=== PATIENT | female | born 1960 ===

== ENCOUNTER 2025-02-17 12:54 | Inpatient (IN) | payer MEDICARE, OTHER ==
[~2025-02-17] VITALS: Ht 167.6 cm; Wt 55.5 kg
[2025-02-17] MEDS ORDERED: FLU VACC TS2025-26(6MOS UP)/PF 45 MCG/0.5 ML SYRINGE IM SCH (13:50)
[2025-02-17] MEDS ORDERED: DiphenhydrAMINE HCl 50 MG/ML 1ML Vial IM PRN (13:50)
[2025-02-17] MEDS ORDERED: Aluminum Hydroxide 320MG/5ML 473 ML PO PRN (13:55)
[2025-02-17] MEDS ORDERED: Haloperidol Lactate Inj. 5 MG/ML Injection IM PRN (13:55)
[2025-02-17] MEDS ORDERED: Polyethylene Glycol 3350 17 gm PO PRN (14:00)
[2025-02-17] MEDS ORDERED: Ondansetron 4 MG SoluTab MM PRN (14:00)
[2025-02-17] MEDS ORDERED: LORazepam 2 MG/ML 1ML Injection IM PRN (14:00)
[2025-02-17 16:21] VITALS: BP 92/62
[2025-02-17 16:44] VITALS: BP 92/62
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
--- NOTE | 2025-02-17 18:18 | NUR ---
PT REPORTED A HOSPITALIZATION IN APRIL 2024 DUE TO A SA AND TO WHICH SHE LEFT "AMA." SHE REPORTED "10 SUICIDE ATTEMPTS IN THE PAST. PT REPORTS SIGNIFICANT SUBSTANCE USE OVER THE COURSE OF HER LIFETIME FROM AGE [age], SHE STATED THAT SHE HAS NOT USED FOR THE LAST 3 MONTHS. ALCOHOL, METH, COCAINE.
[2025-02-17] MEDS ORDERED: ACET500 PO (18:32)
[2025-02-18] MEDS ORDERED: ALBU90OI (02:02)
[2025-02-18] MEDS ORDERED: ABILIFY MYCITE5 M2 PO (02:05)
[2025-02-18] MEDS ORDERED: DOCU100 PO ×2 (02:07→17:36)
[2025-02-18] MEDS ORDERED: ESCI10 PO (02:08)
[2025-02-18] MEDS ORDERED: FLUT1DIS8 INH ×2 (02:12→17:37)
[2025-02-18] MEDS ORDERED: AIRDUO DIGIHAL1 EAC1 INH ×2 (02:14→17:37)
[2025-02-18] MEDS ORDERED: BREO ELLIPTA 21 EAC1 INH ×2 (02:15→17:38)
[2025-02-18] MEDS ORDERED: FURO20 PO ×2 (02:16→17:42)
[2025-02-18] MEDS ORDERED: HYDROCORTISON28.4 G4 TOP (02:18)
[2025-02-18] MEDS ORDERED: HYDPAM25 PO (02:20)
[2025-02-18] MEDS ORDERED: LEVO-T50 MCG PO (02:22)
[2025-02-18] MEDS ORDERED: LOPE2C PO (02:23)
[2025-02-18] MEDS ORDERED: LATUDA80 M2 PO (02:24)
[2025-02-18] MEDS ORDERED: DULERA 100 MCG/13 GM INH ×2 (02:25→17:45)
[2025-02-18] MEDS ORDERED: NARCAN4 M1 INH (02:28)
[2025-02-18] MEDS ORDERED: NAPR500 PO ×2 (02:29→17:46)
[2025-02-18] MEDS ORDERED: OLAN10 PO ×2 (02:30→17:47)
[2025-02-18] MEDS ORDERED: OMEP20ER PO (02:34)
[2025-02-18] MEDS ORDERED: POTA10T PO ×2 (02:36→17:48)
[2025-02-18] MEDS ORDERED: Inderal 20 mg T20 MG PO (02:37)
[2025-02-18] MEDS ORDERED: BICARSIM FORTE125 MG XX (02:39)
[2025-02-18] MEDS ORDERED: SUMA25 PO (02:41)
[2025-02-18] MEDS ORDERED: TRAZ150T57 PO ×2 (02:42→17:51)
[2025-02-18] MEDS ORDERED: Verapamil ER100 MG PO ×2 (02:43→17:52)
--- NOTE | 2025-02-18 04:34 | NUR ---
SHIFT SUMMARY: PATIENT STARTED OUT THE SHIFT IN BED APPARENTLY ASLEEP, ALTHOUGH SHE AWOKE TO HER NAME SOFTLY SPOKEN. SHE STATED, "I FEEL SO MUCH BETTER NOW THAT I'M HERE". SHE WAS ABLE TO ANSWER DYE BOARDING MACHINE OPERATOR QUESTIONS IN A FAIRLY LOGICAL AND LINEAR MANNER. SHE DENIED SUICIDAL IDEATION "I FEEL MUCH SAFER HERE", THOUGHTS OF SELF HARMING AND A/V/T HALLUCINATIONS. SHE STATED THAT SHE IS "TIRED" AND DID NOT WANT TO GET UP OR PARTICIPATE IN ANYTHING TONIGHT. SHE ADMITTED TO HEADACHE, AND REQUESTED TYLENOL, AND ALSO REQUESTED TRAZODONE, ALTHOUGH "I'M USED TO TAKING A LOT MORE THAN THAT!" WHEN INFORMED IT WAS 50 MG. SHE REMAINED IN BED THROUGHOUT THE SHIFT. SHE WAS COMPLIANT WITH MEDICATION ADMINISTRATION, AND THE TRAZODONE WAS EFFECTIVE FOR INSOMNIA COMPLAINTS, AND THE TYLENOL EFFECTIVE FOR HEADACHE, SHE HAD NO MORE ISSUES. SHE RESTED QUIETLY WITH EYES CLOSED AND RESPIRATIONS CONFIRMED FOR THE REMAINDER OF THE SHIFT. CONTINUING TO MONITOR FOR SAFETY WITH Q15 MINUTE CHECKS.
[2025-02-18] MEDS ORDERED: Multivitamins 1 Tab PO SCH (09:00)
[2025-02-18 09:13] VITALS: BP 102/66
--- NOTE | 2025-02-18 10:12 | NUR ---
SHIFT ASSESSMENT: PT ENDORSED SUICIDAL THINKING WITH NO PLAN. PT REPORTS, "I DON'T WANT TO BE HERE, I'M OVERWHELMED WITH MY HEALTH PROBLEMS, CHRONIC PAIN AND MENTAL HEALTH ISSUES." SHE DENIED HI AND AVH. SHE RATED HER ANXIETY LEVEL AT 8/10w, MASS OF 4 AND WAS GIVEN VISTARIL 50MG. PT'S HAIR IS MATTED AND DIRTY, SHE WAS ENCOURAGED TO SHOWER AND WASH HER HAIR AND STAFF WILL ASSIST HER WITH COMBING IT. PT APEARS OLDER THAN STATED AGE. SHE DESCRIBED HER MOOD , "DEPRESSED." HER AFFECT WAS CONSTRICTED. HER GOALS FOR THE DAY ARE TO, TALK WITH STAFF AND DRINK WATER. PT IS CURRENTLY LAYING IN BED.
[2025-02-18 11:54] VITALS: BP 125/76
[2025-02-18] MEDS ORDERED: Formoterol/Mometasone MDI 5/200 mcg 13 GM INH SCH (12:45)
[2025-02-18] MEDS ORDERED: Albuterol HFA200 ACT/6.7 GM INH INH PRN (12:45)
[2025-02-18 13:33] LABS: BASOPHILS ABSOLUTE AUTO 0.06 K/mm3 (0.00-0.23); BASOPHILS PERCENT AUTO 1 % (0-2); EOSINOPHILS ABSOLUTE AUTO 0.20 K/mm3 (0.00-0.68); EOSINOPHILS PERCENT AUTO 2 % (0-6); Hematocrit 42.9 % (33.0-51.0); Hemoglobin 13.8 g/dL (11.5-16.0); IMMATURE GRAN ABSOLUTE AUTO 0.04 K/mm3 (0.00-0.10); IMMATURE GRAN PERCENT AUTO 0 % (0-1); LYMPHOCYTES ABSOLUTE AUTO 3.12 K/mm3 (0.84-5.20); LYMPHOCYTES PERCENT AUTO 24 % (21-46); MONOCYTES ABSOLUTE AUTO 0.78 K/mm3 (0.16-1.47); MONOCYTES PERCENT AUTO 6 % (4-13); Mean Corpuscular HGB Conc 32.2 g/dL (31.5-36.5); Mean Corpuscular Volume 87 fL (80-100); NEUTROPHILS ABSOLUTE AUTO 8.87 K/mm3 (1.96-9.15); NEUTROPHILS PERCENT AUTO 68 % (41-73); NRBC ABSOLUTE 0.00 K/mm3 (0.00-0.02); NRBC Auto 0.0 /100 WBC (0.0-0.2); Platelet Count 487 K/mm3 (150-400); RDW Coefficient Variation 15.1 % (11.7-14.2); RDW Standard Deviation 48.2 fL (35.1-46.3)
[2025-02-18 14:12] LABS: Alanine Aminotransfer (ALT/SGP 29.0 U/L (12-78); Albumin, Blood 4.0 g/dL (3.4-5.0); Albumin/Globulin Ratio 1.0 (0.8-1.8); Anion Gap 12.0 mmol/L (3-11); Aspartate Aminotrans (AST/SGOT 13.0 U/L (12-37); Bilirubin, Total 0.3 mg/dL (0.1-1.0); Blood Urea Nitrogen 54.0 mg/dL (8-24); CO2, Blood 18.0 mmol/L (21-32); Calcium, Blood 9.2 mg/dL (8.5-10.1); Chloride, Blood 105.0 mmol/L (98-108); Creatinine, Blood 1.42 mg/dL (0.40-1.00); Globulin, Blood 4.0 g/dL (2.2-4.0); Glucose, Blood 104.0 mg/dL (70-99); Potassium, Blood 4.5 mmol/L (3.5-5.5); Sodium, Blood 130.0 mmol/L (136-145); Thyroid Stimulating Hormone 5.42 uIU/mL (0.360-4.800); Total Protein, Blood 8.0 g/dL (6.4-8.2)
--- NOTE | 2025-02-18 15:00 | NUR ---
Dr. Mann was called in for medical consult. Labs were ordered and resulted abnormal. The provider was notiofied and after reviewing the labs, decided to admit the patient to medical floor. Nurse Virgilio Luciano was notified. They will need a bit of time to clean a room on SCU, before we can officially discharge the patient to medical. This is estimated to be about an hour. Patient will be assuming room 346 on the medical floor. This is in the SCU d/t the patients current SI.
--- NOTE | 2025-02-18 15:03 | NUR ---
PT REPORTED THAT SHE HAD A HEADACHE AND WAS GIVEN TYLENOL 650MG WHICH WAS MINIMALLY EFFECTIVE IN REDUCING HER PAIN LEVEL FROM 8/10w TO 6/10w. PT SAID SHE WAS FEELING A LITTLE NAUSEOUS AND WANTED TO SKIP LUNCH. PT WAS SEEN BY THE HOSPITALIST FOR MEDICATION MANAGEMENT. LABS WERE DRAWN. PT IS CURRENTLY RESTING IN BED. PT IS A BIT SHAKEY WHICH SHE REPORTED WAS NOT HER NORMAL AND THAT SHE DOESN'T FEEL GOOD. LABS CAME KENNY ABNORMAL, PROVIDERS NOTIFIED AND SHE WAS MADE AWARE OF HER TRANSFER TO MEDICAL FLOOR PER ABNORMAL LABS SOON A BED IS AVAILABLE.
--- NOTE | 2025-02-18 17:01 | NUR ---
1705 PT WAS TRANSFERED TO MEDICAL FLOOR VIA VAN AND STAFF MEMBERS FROM [facility] DUE TO ABNORMAL LABS. SHE LEFT WITH ALL OF HER BELONGINGS AND DISCHARGE PAPERWORK. [facility] DIRECTOR WAS NOTIFIED OF THE TRANSFER. PT EXPRESSED GRATITUDE TO GO TO MEDICAL FLOOR FOR A HIGHER LEVEL OF CARE.
[2025-02-18] MEDS ORDERED: ACET500 PO (17:35)
[2025-02-18] MEDS ORDERED: ALBU90OI INH (17:36)
[2025-02-18] MEDS ORDERED: Hydroxyzine HCl25 MG PO (17:43)
[2025-02-18] MEDS ORDERED: EUTHYROX50 MCG PO (17:43)
[2025-02-18] MEDS ORDERED: IMODIUM A-D2 M1 PO (17:44)
[2025-02-18] MEDS ORDERED: LATUDA80 M1 PO (17:45)
[2025-02-18] MEDS ORDERED: NARCAN4 M1 (17:46)
[2025-02-18] MEDS ORDERED: ONDA4ODT MM (17:48)
[2025-02-18] MEDS ORDERED: OMEPRAZOLE MAGN20 MG PO (17:48)
[2025-02-18] MEDS ORDERED: Inderal40 MG PO (17:49)
[2025-02-18] MEDS ORDERED: SIME80CH PO (17:49)
[2025-02-18] MEDS ORDERED: Imitrex100 MG PO (17:50)
[2025-02-18] MEDS ORDERED: Banana Flakes/Tos 1 EA Powder Pack PO SCH (21:00)
== END 2025-02-18 17:05 | disposition short-term general hospital (02) | DRG 885 ==
LOC: BHU 12:54
PROVIDERS: Student in an Organized Health Care Education/Training Program; ADMIT Psychiatry & Neurology Psychiatry
DX: F33.2 Major depressive disorder, recurrent severe without psychotic features (principal); N17.9 Acute kidney failure, unspecified; R45.851 Suicidal ideations; I10 Essential (primary) hypertension; E03.9 Hypothyroidism, unspecified; J44.9 Chronic obstructive pulmonary disease, unspecified; F17.210 Nicotine dependence, cigarettes, uncomplicated; K21.9 Gastro-esophageal reflux disease without esophagitis; R73.9 Hyperglycemia, unspecified; A60.04 Herpesviral vulvovaginitis; R19.7 Diarrhea, unspecified; G43.909 Migraine, unspecified, not intractable, without status migrainosus; F15.10 Other stimulant abuse, uncomplicated; Z91.51 Personal history of suicidal behavior; Z60.2 Problems related to living alone; Z98.890 Other specified postprocedural states; Z79.51 Long term (current) use of inhaled steroids; Z79.890 Hormone replacement therapy; Z79.899 Other long term (current) drug therapy; Z88.5 Allergy status to narcotic agent; Z93.3 Colostomy status
CPT/HCPCS: 36415; 80053; 84443; 85025; A9270

== ENCOUNTER 2025-02-18 16:08 | Inpatient (IN) | payer MEDICARE, OTHER ==
[~2025-02-18] VITALS: Ht 167.6 cm; Wt 55.1 kg
[~2025-02-18 16:08] MED LIST: ABILIFY MYCITE5 M2 PO; ACET500 PO; AIRDUO DIGIHAL1 EAC1 INH; ALBU90OI; BICARSIM FORTE125 MG XX; BREO ELLIPTA 21 EAC1 INH; DOCU100 PO; DULERA 100 MCG/13 GM INH; ESCI10 PO; FLUT1DIS8 INH; FURO20 PO; HYDPAM25 PO; HYDROCORTISON28.4 G4 TOP; Inderal 20 mg T20 MG PO; LATUDA80 M2 PO; LEVO-T50 MCG PO; LOPE2C PO; NAPR500 PO; NARCAN4 M1 INH; OLAN10 PO; OMEP20ER PO; POTA10T PO; SUMA25 PO; TRAZ150T57 PO; Verapamil ER100 MG PO
[2025-02-18] MEDS ORDERED: ACET500 PO (17:35)
[2025-02-18] MEDS ORDERED: ALBU90OI INH (17:36)
[2025-02-18] MEDS ORDERED: DOCU100 PO (17:36)
[2025-02-18] MEDS ORDERED: AIRDUO DIGIHAL1 EAC1 INH (17:37)
[2025-02-18] MEDS ORDERED: BREO ELLIPTA 21 EAC1 INH (17:38)
[2025-02-18] MEDS ORDERED: FURO20 PO (17:42)
[2025-02-18] MEDS ORDERED: EUTHYROX50 MCG PO (17:43)
[2025-02-18] MEDS ORDERED: Hydroxyzine HCl25 MG PO (17:43)
[2025-02-18] MEDS ORDERED: IMODIUM A-D2 M1 PO (17:44)
[2025-02-18] MEDS ORDERED: LATUDA80 M1 PO (17:45)
[2025-02-18] MEDS ORDERED: DULERA 100 MCG/13 GM INH (17:45)
[2025-02-18] MEDS ORDERED: NARCAN4 M1 (17:46)
[2025-02-18] MEDS ORDERED: ONDA4ODT MM (17:48)
[2025-02-18] MEDS ORDERED: OMEPRAZOLE MAGN20 MG PO (17:48)
[2025-02-18] MEDS ORDERED: Inderal40 MG PO (17:49)
[2025-02-18] MEDS ORDERED: SIME80CH PO (17:49)
[2025-02-18] MEDS ORDERED: Imitrex100 MG PO (17:50)
[2025-02-18] MEDS ORDERED: FLU VACC TS2025-26(6MOS UP)/PF 45 MCG/0.5 ML SYRINGE IM SCH (18:15)
[2025-02-18] MEDS ORDERED: Albuterol HFA200 ACT/6.7 GM INH INH PRN (19:00)
[2025-02-18] MEDS ORDERED: Formoterol/Mometasone MDI 5/200 mcg 13 GM INH SCH (19:00)
[2025-02-18] MEDS ORDERED: NS 1,000 ML IV SCH (19:00)
--- NOTE | 2025-02-18 19:05 | NUR ---
ADMISSION NOTE/SHIFT SUMMARY PATIENT ADMITTED TO 346 FROM [facility] THIS EVENING AROUND 1730. PATIENT A/OX4, ABLE TO MAKE NEEDS KNOWN, COMPLAINING OF GENERAL MALAISE, NAUSEA, AND MIGRAINE. PATIENT WITH ILEOSTOMY SINCE AUGUST 2024 AND RECNT HOSPITILIZATION WITH COLITIS. PATIENT HAS 1:1 SITTER D/T SI. STOOL SAMPLE OBTAINED FROM ILEOSTOMY. PATIENT ADMINISTERED MEDICATIONS PER EMAR FOR MIGRAINE. IV ATTEMPTED TO BE PLACE X2 USUCCSESFUL. CHARGE NURSE INFORMED. BEDSIDE SHIFT REPORT COMPLETED WITH WOOL SORTER NURSES. NO OTHER CONCERNS AT THIS TIME.
[2025-02-18 20:20] VITALS: BP 108/83
[2025-02-18] MEDS ORDERED: Banana Flakes/Tos 1 EA Powder Pack PO SCH (21:00)
[2025-02-19 00:22] LABS: Campylobacter Sp Not Detected (NOT DETECT); E. Coli O157 Not Detected (NOT DETECT); Enteroaggregative E. coli-EAEC Not Detected (NOT DETECT); Enteropathogenic E. coli-EPEC Not Detected (NOT DETECT); Enterotoxigenic E. coli-ETEC Not Detected (NOT DETECT); Salmonella Sp Not Detected (NOT DETECT); Shiga Toxin-prod E. coli-STEC Not Detected (NOT DETECT); Shigella/Enteroin E. coli-EIEC Not Detected (NOT DETECT); Vibrio Sp Not Detected (NOT DETECT)
--- NOTE | 2025-02-19 01:27 | NUR ---
Girish, patient had an incident with her ileostomy where it had leaked while she was sleeping. She woke up frantic, hyperventilating and appeared to be in a panick attack with her anxiety katie high to the point she couldn't think straight. She screamed out "I need help! I need help in here." This RN was already sitting across the hallway with patient in view. Entered room and patient close to being tearful and clearly in distress stating her ileostomy had leaked again. This was the first time it leaked girish. Patient could not gather her thoughts but was able to answer questions with one to two word answers, still very panicky. Able to get patient onto the toilet and then the shower. While in the shower, she was tearful and hyperventilating again. Claimed she felt like she was going to pass out, then said she felt like she couldn't breathe, and then stated she felt like she is having a herpes flare up. It was one problem after the next. SAEID Max and myself were both working with patient girish and was able to prevent patient from spiraling further by using therapeutic communication, exhibiting calm demeanor, providing reassurance, and giving a helping hand. From here, patient got back into bed and replaced own ileostomy bag. Patient was at [facility] prior to this admission. This RN concern for safety as 1:1 sitter was just discontinued. Reassessed suicide risk and patient reports plan to kill herself when she gets home. Patient states "There's nothing I can do here but when I get home, I plan to stab myself over and over again. And that's after taking all of my psyche meds." When inquired about what's changed, patient reports that she is tired of her ileostomy bag leaking and that every time it leaks, it takes her to this state of mind. Claimed she is intending on carrying out this plan. These comments and her history of SI attempts puts patient at a High Risk. Relayed this new finding to Charge Atif Pierce RN. Per SAEID Srivastava... reassess risk the next time it's due and, if risk level unchanged, notify provider then. Patient currently being observed w/ 1:1 between SAEID Max and myself. Room mitigation conducted. Patient resting quietly in bed.
--- NOTE | 2025-02-19 01:46 | NUR ---
PT BEGAN SPIRALLING AFTER HER OSTOMY BAG BEGAN TO LEAK. SHE BEGAN TO CRY AND HYPERVENTILATE. THIS NURSE AND TH-RN GAVE REASSURANCE AND USED SYMPATHETIC LANGUAGE TO CALM AND RELAX THE PT. PT TOOK A SUPERVISED SHOWER AND APPLIED A NEW OSTOMY BAG. AFTER THIS EVENT PT TOLD TH-RN THAT WHEN SHE GOT HOME SHE WOULD TAKE STEPS TO END HER LIFE, CHARGE NURSE WAS NOTIFIED. PT IS CURRENTLY RESTING COMFORTABLY AND THIS RN REMAINS IN THE ROOM TO CONTINUE TO MONITOR.
[2025-02-19 04:03] VITALS: BP 94/60
--- NOTE | 2025-02-19 04:34 | NUR ---
PT HAS POOR IV ACCESS, 22G PLACED IN RAC BECAME UNUSABLE SHORTLY AFTER PLACEMENT, PT RECEIVED 1/3RD OF ORDERED IV FLUIDS. SPOKE WITH HOSPITALIST AND WAS TOLD THATIT WAS OKAY TO NOT HAVE A PIV AND TO D/C FLUID PENDING MORNING LABS.
[2025-02-19 05:41] LABS: BASOPHILS ABSOLUTE AUTO 0.06 K/mm3 (0.00-0.23); BASOPHILS PERCENT AUTO 1 % (0-2); EOSINOPHILS ABSOLUTE AUTO 0.23 K/mm3 (0.00-0.68); EOSINOPHILS PERCENT AUTO 2 % (0-6); Hematocrit 40.0 % (33.0-51.0); Hemoglobin 13.1 g/dL (11.5-16.0); IMMATURE GRAN ABSOLUTE AUTO 0.04 K/mm3 (0.00-0.10); IMMATURE GRAN PERCENT AUTO 0 % (0-1); LYMPHOCYTES ABSOLUTE AUTO 2.66 K/mm3 (0.84-5.20); LYMPHOCYTES PERCENT AUTO 26 % (21-46); MONOCYTES ABSOLUTE AUTO 0.60 K/mm3 (0.16-1.47); MONOCYTES PERCENT AUTO 6 % (4-13); Mean Corpuscular HGB Conc 32.8 g/dL (31.5-36.5); Mean Corpuscular Volume 87 fL (80-100); NEUTROPHILS ABSOLUTE AUTO 6.62 K/mm3 (1.96-9.15); NEUTROPHILS PERCENT AUTO 65 % (41-73); NRBC ABSOLUTE 0.00 K/mm3 (0.00-0.02); NRBC Auto 0.0 /100 WBC (0.0-0.2); Platelet Count 401 K/mm3 (150-400); RDW Coefficient Variation 15.2 % (11.7-14.2); RDW Standard Deviation 48.3 fL (35.1-46.3)
[2025-02-19 05:54] VITALS: BP 91/77
[2025-02-19 06:14] LABS: Anion Gap 12.0 mmol/L (3-11); Blood Urea Nitrogen 47.0 mg/dL (8-24); CO2, Blood 16.0 mmol/L (21-32); Calcium, Blood 9.4 mg/dL (8.5-10.1); Chloride, Blood 107.0 mmol/L (98-108); Creatinine, Blood 1.27 mg/dL (0.40-1.00); Glucose, Blood 114.0 mg/dL (70-99); Potassium, Blood 4.9 mmol/L (3.5-5.5); Sodium, Blood 130.0 mmol/L (136-145)
--- NOTE | 2025-02-19 07:26 | NUR ---
Shift Summary AOx3. Patient able to carry on a meaningful conversation with this RN, is aware of what's going on. Patient has been quite demanding and impatient. Despite having agreed to wait 5 minutes for me to pull her meds in order to bundle care, as soon as I step outside of her room, pt will yell out again that she is thirsty and needs water. If the staff takes a little longer to address patient's demand, she will make other false statements such as "Help me poo. I can't poo" (+ cdiff and pooping q shift) AND "I need to pee. I need to pee. Please help me pee" when she had already wet her brief and bladder scan showed < 25cc with no signs of acute retention. Drinking well w/ assist using spoon and HOB 90 degrees. Medicated for pain per EMAR with good effect. Though patient did initially request oxy to "help me sleep," educated on indication for pain, not sleep. Gave trazodone for sleep instead. Had a discussion with patient RE goals of care and what patient expectations are moving forward. Patient still stated, as she did initially, that her goal is to return home. Did convey realistic care expectations of home vs facility and concern that family/ may not be able to provide the care that patient now needs; however, pt appeared to be in denail about the extent of her recent health decline as evidence by showing no interest in answering further and changing the subject entirely. Slept well throughout the night.
[2025-02-19 07:41] VITALS: BP 103/80
[2025-02-19] MEDS ORDERED: Enoxaparin 40 MG/0.4 ML SYR SC SCH (09:00)
[2025-02-19 11:07] LABS: Alanine Aminotransfer (ALT/SGP 23.0 U/L (12-78); Albumin, Blood 3.7 g/dL (3.4-5.0); Albumin/Globulin Ratio 1.1 (0.8-1.8); Anion Gap 12.0 mmol/L (3-11); Aspartate Aminotrans (AST/SGOT 13.0 U/L (12-37); Bilirubin, Total 0.4 mg/dL (0.1-1.0); Blood Urea Nitrogen 43.0 mg/dL (8-24); CO2, Blood 16.0 mmol/L (21-32); Calcium, Blood 9.3 mg/dL (8.5-10.1); Chloride, Blood 109.0 mmol/L (98-108); Creatinine, Blood 1.12 mg/dL (0.40-1.00); Globulin, Blood 3.5 g/dL (2.2-4.0); Glucose, Blood 125.0 mg/dL (70-99); Magnesium, Blood 2.3 mg/dL (1.6-2.4); Phosphorus, Blood 3.4 mg/dL (2.5-4.9); Potassium, Blood 4.3 mmol/L (3.5-5.5); Sodium, Blood 133.0 mmol/L (136-145); Total Protein, Blood 7.2 g/dL (6.4-8.2)
--- NOTE | 2025-02-19 12:48 | NUR ---
PROVIDER CONTACT: SPOKE WITH DR FELICIANO REGARDING PT HIGH SI RISK AND THE POTENTIAL FOR A PSYCH CONSULT TO BE PLACED. PLAN OF CARE IS TO NOT PLACE ONE AT THIS TIME AND TO TREAT THE PTs OTHER ILLNESSES UNTIL THE PT IS STABLE TO RETURN TO THE U. CARE CONTINUES.
[2025-02-19 16:29] VITALS: BP 98/79
--- NOTE | 2025-02-19 16:30 | NUR ---
SHIFT SUMMARY: A&OX4 THROUGHOUT SHIFT. PLEASANT AND COOPERATIVE WITH CARE. NO ACUTE EVENTS. 1:1 SITTER REMAINS AT BEDSIDE FOR HIGH SI RISK. LYING IN BED AT THIS TIME. BREATHING EQUAL AND NONLABORED. MEDICATED FOR PAIN X1. CALL LT NEAR.
[2025-02-19 19:45] VITALS: BP 102/86
[2025-02-20 05:02] VITALS: BP 97/78
--- NOTE | 2025-02-20 06:02 | NUR ---
PT HAD A RESTFUL NIGHT. IN CONTRAST TO THE ILLEOSTOMY LEAK FROM THE NIGHT PRIOR, PT MAINTAINED A GOOD ATTITUDE AND DID NOT SPIRAL INTO PANIC. REASSURANCE GOES A LONG WAY WHEN HELPING HER NOT TO BECOME HYSTERICAL. NO SUICIDAL IDEATION HOWEVER DOES REPORT SUICIDAL THOUGHTS WITH NO PLAN OR INTENT. NO APPARENT DISTRESS STILL 1:1 SITTER.
[2025-02-20 06:04] LABS: BASOPHILS ABSOLUTE AUTO 0.04 K/mm3 (0.00-0.23); BASOPHILS PERCENT AUTO 1 % (0-2); EOSINOPHILS ABSOLUTE AUTO 0.19 K/mm3 (0.00-0.68); EOSINOPHILS PERCENT AUTO 3 % (0-6); Hematocrit 37.1 % (33.0-51.0); Hemoglobin 12.1 g/dL (11.5-16.0); IMMATURE GRAN ABSOLUTE AUTO 0.03 K/mm3 (0.00-0.10); IMMATURE GRAN PERCENT AUTO 0 % (0-1); LYMPHOCYTES ABSOLUTE AUTO 2.35 K/mm3 (0.84-5.20); LYMPHOCYTES PERCENT AUTO 35 % (21-46); MONOCYTES ABSOLUTE AUTO 0.49 K/mm3 (0.16-1.47); MONOCYTES PERCENT AUTO 7 % (4-13); Mean Corpuscular HGB Conc 32.6 g/dL (31.5-36.5); Mean Corpuscular Volume 88 fL (80-100); NEUTROPHILS ABSOLUTE AUTO 3.63 K/mm3 (1.96-9.15); NEUTROPHILS PERCENT AUTO 54 % (41-73); NRBC ABSOLUTE 0.00 K/mm3 (0.00-0.02); NRBC Auto 0.0 /100 WBC (0.0-0.2); Platelet Count 299 K/mm3 (150-400); RDW Coefficient Variation 15.0 % (11.7-14.2); RDW Standard Deviation 48.4 fL (35.1-46.3)
[2025-02-20 06:22] LABS: Alanine Aminotransfer (ALT/SGP 22.0 U/L (12-78); Albumin, Blood 3.5 g/dL (3.4-5.0); Albumin/Globulin Ratio 1.0 (0.8-1.8); Anion Gap 13.0 mmol/L (3-11); Aspartate Aminotrans (AST/SGOT 10.0 U/L (12-37); Bilirubin, Total 0.3 mg/dL (0.1-1.0); Blood Urea Nitrogen 37.0 mg/dL (8-24); CO2, Blood 15.0 mmol/L (21-32); Calcium, Blood 9.0 mg/dL (8.5-10.1); Chloride, Blood 109.0 mmol/L (98-108); Creatinine, Blood 1.13 mg/dL (0.40-1.00); Globulin, Blood 3.5 g/dL (2.2-4.0); Glucose, Blood 139.0 mg/dL (70-99); Potassium, Blood 4.2 mmol/L (3.5-5.5); Sodium, Blood 133.0 mmol/L (136-145); Total Protein, Blood 7.0 g/dL (6.4-8.2)
[2025-02-20] MEDS ORDERED: NS 1,000 ML IV SCH (08:25)
[2025-02-20 09:13] VITALS: BP 103/80
[2025-02-20] MEDS ORDERED: Miconazole Nitrate 2% 85 GM PWD TOP PRN (13:05)
--- NOTE | 2025-02-20 13:30 | NUR ---
Upon receiving a referral for spiritual care, I visited the patient. SHe is resting in bed and alert. She tells me about her struggles with mental illness, her current level of exhaustion, and her feelings of aloneness due to the distance from family and friends in [place]. She tells me about her 30 lbs mixed terrier named Heide and the love and romeo she gains from her dogs. We talk about the hospital dogs and I make the suggestion to have a dog from our dog visitation program visit her. I provided therapeutic listening and a calming presence. The patient responded well and showed signs of an elevated mood. I asked the patient's RN to put in an order for dog visit, which she gladly agrees to. I will continue to remain available to patient and family.
[2025-02-20] MEDS ORDERED: Miconazole Nitrate 2% 85 GM PWD TOP SCH (14:00)
[2025-02-20 14:54] LABS: Anion Gap 10.0 mmol/L (3-11); Blood Urea Nitrogen 35.0 mg/dL (8-24); CO2, Blood 19.0 mmol/L (21-32); Calcium, Blood 9.1 mg/dL (8.5-10.1); Chloride, Blood 108.0 mmol/L (98-108); Creatinine, Blood 1.18 mg/dL (0.40-1.00); Glucose, Blood 141.0 mg/dL (70-99); Potassium, Blood 4.3 mmol/L (3.5-5.5); Sodium, Blood 133.0 mmol/L (136-145)
[2025-02-20 17:24] VITALS: BP 116/67
--- NOTE | 2025-02-20 18:51 | NUR ---
NOTE PT ALERT. COOPERATIVE WITH 1:1 AND STAFF. PT REPLACED ILEOSTOMY D/T LEAKING. ASKED SPECIAL DELIVERY MAIL CARRIER TO ORDER PT SUPPLIES. JATIN TOOK PICTURES OF HER SUPPLIES. VSS. PT HAIRCARE DONE THIS EVENING. BED LOW LOCKED. SHORT CALL LIGHT WITH IN REACH. CARE ONGOING.
[2025-02-20 20:03] VITALS: BP 99/75
[2025-02-21 05:41] VITALS: BP 104/79
[2025-02-21 06:30] LABS: Anion Gap 10.0 mmol/L (3-11); Blood Urea Nitrogen 32.0 mg/dL (8-24); CO2, Blood 19.0 mmol/L (21-32); Calcium, Blood 9.3 mg/dL (8.5-10.1); Chloride, Blood 108.0 mmol/L (98-108); Creatinine, Blood 1.13 mg/dL (0.40-1.00); Glucose, Blood 98.0 mg/dL (70-99); Potassium, Blood 4.9 mmol/L (3.5-5.5); Sodium, Blood 132.0 mmol/L (136-145)
--- NOTE | 2025-02-21 06:56 | NUR ---
SHIFT SUMMARY; PT A/OX4, INDEPENDENT WITH CARE, AND ON SI PRECAUTIONS WITH A 1:1 SITTER AT BEDSIDE. SEE SI ASSESSMENT IN EMAR. PT NOT GIVEN BANANA FLAKES THIS SHIFT DUE TO REPORTED SLIGHT NAUSEA, OTHERWISE MEDICATED PER EMAR. PT'S ILEOSTOMY SEEN LEAKING AROUND THE WAFER. STOOL IN BAG APPEARS LIQUID BROWN. PT REPLACED WAFER WITH RN AT BEDSIDE. SKIN APPEARS EXCORIATED AROUND THE STOMA. ANTIFUNGAL POWDER AND STOMA POWDER APPLIED BY PT TO SKIN UNDER WAFER. VSS. CALL LIGHT WITHIN REACH. BED IN LOW POSITION.
[2025-02-21 07:42] VITALS: BP 103/72
--- NOTE | 2025-02-21 13:17 | NUR ---
The patient is lying in bed and alert. Based on my conversation with the patient yesterday, I tried yesterday and this morning to have a hospital therapy dog come and visit the patient. I finally saw Cortez, the leader of the volunteer therapy dog program and his dog, Tommy in the ER and I asked him if I could walk him over to visit a specific patient on the Medical floor. When we got to the pt's , I asked if a visit from a therapy dog would be okay. She smiled and stated that she would love it. Tommy, upon the patient's approval, jumps in bed with the patient. She cuddles with the patient and licks her face which made the patient's face become so bright with romeo. The patient talks about her 14 y/o dog, Heide, who is at home in [place], and the carter that they have. She speaks of how much it means to her to have the love and contact with another dog. After a good visit, the patient with tears of romeo and a huge smile, hugs Tommy and thanks Tommy for coming. Spiritual care will remain available.
[2025-02-21 16:09] VITALS: BP 102/71
[2025-02-21 20:00] VITALS: BP 109/62
[2025-02-22 04:37] VITALS: BP 85/67
--- NOTE | 2025-02-22 05:20 | NUR ---
PT C/O ANXIETY, MEDICATION GIVEN RX. SLEPT T/O THE NIGHT.
[2025-02-22 06:22] LABS: Anion Gap 10.0 mmol/L (3-11); Blood Urea Nitrogen 28.0 mg/dL (8-24); CO2, Blood 21.0 mmol/L (21-32); Calcium, Blood 9.2 mg/dL (8.5-10.1); Chloride, Blood 107.0 mmol/L (98-108); Creatinine, Blood 0.98 mg/dL (0.40-1.00); Glucose, Blood 103.0 mg/dL (70-99); Magnesium, Blood 2.1 mg/dL (1.6-2.4); Phosphorus, Blood 4.1 mg/dL (2.5-4.9); Potassium, Blood 4.5 mmol/L (3.5-5.5); Sodium, Blood 133.0 mmol/L (136-145)
[2025-02-22 07:41] VITALS: BP 103/74
--- NOTE | 2025-02-22 14:27 | NUR ---
PATIENT DISCHARGE PATIENT DISCHARGED TO U REPORT GIVEN TO TRANSFER TEAM AND BY CALL. PATIENT HAS HAD NOTED SIGNS OF CONCERN OR DISTRESS. DISCHARGE EDUCATION WENT OVER WITH PATIENT AND U TEAM. WENT OVER ROOM WITH PATIENT WITH STAFF. TRANSPORTED BY U BY WHEEL CHAIR.
[2025-02-22] MEDS ORDERED: ACYC400 PO (18:16)
[2025-02-22] MEDS ORDERED: BANATROL PLUS1 EAC1 PO (18:18)
[2025-02-22] MEDS ORDERED: LOPE2C PO (18:18)
[2025-02-22] MEDS ORDERED: Celexa20 MG (18:20)
[2025-02-22] MEDS ORDERED: SODBIC650 PO (18:20)
== END 2025-02-22 14:20 | disposition other institution (70) | DRG 683 ==
LOC: MEDS 16:08
PROVIDERS: Internal Medicine; ADMIT Student in an Organized Health Care Education/Training Program
DX: N17.9 Acute kidney failure, unspecified (principal); E87.21 Acute metabolic acidosis; R45.851 Suicidal ideations; Z93.3 Colostomy status; J44.9 Chronic obstructive pulmonary disease, unspecified; F32.A Depression, unspecified; K21.9 Gastro-esophageal reflux disease without esophagitis; A60.04 Herpesviral vulvovaginitis; G43.909 Migraine, unspecified, not intractable, without status migrainosus; I10 Essential (primary) hypertension; E03.9 Hypothyroidism, unspecified; R73.9 Hyperglycemia, unspecified; Z88.5 Allergy status to narcotic agent; R19.7 Diarrhea, unspecified; F41.9 Anxiety disorder, unspecified
CPT/HCPCS: 36415; 80048; 80053; 83735; 84100; 85025; 87507; 94640; 94664; 94760; A9270; J1650; J7030; Q0177

== ENCOUNTER 2025-02-22 13:07 | Inpatient (IN) | payer MEDICARE, OTHER ==
[~2025-02-22] VITALS: Ht 167.6 cm; Wt 57.3 kg
[~2025-02-22 13:07] MED LIST changes: +ALBU90OI INH; +EUTHYROX50 MCG PO; +Hydroxyzine HCl25 MG PO; +IMODIUM A-D2 M1 PO; +Imitrex100 MG PO; +Inderal40 MG PO; +LATUDA80 M1 PO; +NARCAN4 M1; +OMEPRAZOLE MAGN20 MG PO; +ONDA4ODT MM; +SIME80CH PO
[2025-02-22 14:37] VITALS: BP 96/67
[2025-02-22 15:09] VITALS: BP 96/67
[2025-02-22] MEDS ORDERED: Aluminum Hydroxide 320MG/5ML 473 ML PO PRN (15:55)
[2025-02-22] MEDS ORDERED: DiphenhydrAMINE HCl 50 MG/ML 1ML Vial IM PRN (15:55)
[2025-02-22] MEDS ORDERED: Haloperidol Lactate Inj. 5 MG/ML Injection IM PRN (15:55)
[2025-02-22] MEDS ORDERED: Ondansetron 4 MG SoluTab MM PRN (16:00)
[2025-02-22] MEDS ORDERED: LORazepam 2 MG/ML 1ML Injection IM PRN (16:00)
[2025-02-22] MEDS ORDERED: Polyethylene Glycol 3350 17 gm PO PRN (16:00)
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
[2025-02-22] MEDS ORDERED: ACYC400 PO (18:16)
[2025-02-22] MEDS ORDERED: LOPE2C PO (18:18)
[2025-02-22] MEDS ORDERED: BANATROL PLUS1 EAC1 PO (18:18)
[2025-02-22] MEDS ORDERED: SODBIC650 PO (18:20)
[2025-02-22] MEDS ORDERED: Celexa20 MG (18:20)
[2025-02-22 20:23] VITALS: BP 93/77
[2025-02-22] MEDS ORDERED: Albuterol HFA200 ACT/6.7 GM INH INH PRN (20:50)
[2025-02-22] MEDS ORDERED: Banana Flakes/Tos 1 EA Powder Pack PO SCH (21:00)
[2025-02-22] MEDS ORDERED: Formoterol/Mometasone MDI 5/200 mcg 13 GM INH SCH (21:00)
--- NOTE | 2025-02-23 04:17 | NUR ---
SHIFT SUMMARY PT LAYING IN BED, AWAKE AT START OF SHIFT. SHE HAS A FLAT AFFECT, REPORTS HER MOOD "GOOD". SHE DENIES ANY SI, HI, THOUGHTS OF SELF HARM OR AVTH. DENIED ANY CURRENT ANXIETY. SHE DOES STATE THAT SHE HAD HAD AUDITORY HALLUCINATIONS IN THE PAST, BUT HAS NOT HAD ANY WHILE IN U. PT DECLINED EVENING SNACK AND STAYED IN HER ROOM. PT ENCOURAGED TO DRINK PLENTY OF FLUIDS AND HAD GATORADE. SHE EMPTIED HER ILEOSTOMY AND REPORTED NO LOOSE STOOL. SHE REFUSED HER EVENING DOSE OF BANATROL, BUT WAS COMPLIANT WITH OTHER SCHEDULED MEDICATIONS. PT REPORTS SHE TAKES TRAZODONE TO HELP WITH SLEEPING AND REQUESTED AND RECEIVED A DOSE. SHE HAS REMAINED IN BED THROUGHOUT THE NIGHT. Q15 MINUTE CHECKS TO CONTINUE PER PT SAFETY.
[2025-02-23 08:26] LABS: Anion Gap 9.0 mmol/L (3-11); Blood Urea Nitrogen 27.0 mg/dL (8-24); CO2, Blood 24.0 mmol/L (21-32); Calcium, Blood 9.2 mg/dL (8.5-10.1); Chloride, Blood 107.0 mmol/L (98-108); Creatinine, Blood 0.88 mg/dL (0.40-1.00); Glucose, Blood 112.0 mg/dL (70-99); Potassium, Blood 4.7 mmol/L (3.5-5.5); Sodium, Blood 135.0 mmol/L (136-145)
[2025-02-23 08:43] VITALS: BP 114/75
[2025-02-23] MEDS ORDERED: Multivitamins 1 Tab PO SCH (09:00)
[2025-02-23] MEDS ORDERED: LURASIDONE 80 MG PO SCH (09:00)
--- NOTE | 2025-02-23 15:58 | NUR ---
[facility] Luther CM, [facility] with [facility] called regarding this patient and her community based care. 1)Kirti Chang with [facility] is her therapist 2)Jennifer Galvez with [facility] is medications 3) Cierra Demarco with [facility] is also a med prescriber 4) she used to have home health care with [facility] out of the [facility]. Patient states she no longer has this. Geno Cordova phone number is [phone] *also this CM confirmed that this patient does have an Iliostomy*
--- NOTE | 2025-02-23 16:56 | NUR ---
Yancy is alert and orientated. She appears more healthy than her prior visit before the hospitalization. She takes all medications as prescribed and is able to make her needs known. She denies having suicidal thoughts (at this time). Patient denies hallucination. She was able to care for her iliostomy this shift. Patient had labs drawn this am. NA was slightly off, as well as a couple others but nothing was critical. While talking with this patient, it appears that her thoughts are based in reality and are logical. She does want to get better, and is future in her thinking. She is in her room, resting waiting for dinner. Please see additional prior nursing note for info.
[2025-02-23] MEDS ORDERED: FLU VACC TS2025-26(6MOS UP)/PF 45 MCG/0.5 ML SYRINGE IM SCH (18:00)
[2025-02-23 19:23] VITALS: BP 93/66
--- NOTE | 2025-02-24 05:15 | NUR ---
SHIFT SUMMARY Pt is A&O, calm, cooperative, polite, appropriately dressed and groomed, eye contact is appropriate. Pt stated that his mood is "allright," affect is constricted. Pt denies SI, HI, and hallucinations. Pt denies current pain. Pt spent most of the evening in her room, resting quietly on her bed. PRN trazodone requested for sleep. Home med lurasidone was not given as it is not available. Staff continues to monitor q15m for safety and wellness.
[2025-02-24 08:49] VITALS: BP 102/67
--- NOTE | 2025-02-24 11:09 | NUR ---
SHIFT ASSESSMENT: PT ALERT, ORIENTED AND COOPERATIVE WITH CARE. HER EYE CONTACT IS APPOPRIATE, SHE APPEARS ANXIOUS DURING CONVERSATION, WRINGING HER HANDS, TALKING QUICKLY BUT SOFTLY. STATES THAT SHE IS FEELING ANXIOUS BECAUSE SHE NEEDS TO CHANGE HER OSTOMY BAG AND VERBALIZED CONCERNS AROUND THIS. RATED ANXIETY AT 9/10. DISCUSSED PLAN WITH PATIENT TO HELP RELIEVE HER ANXIETY AND ASSIST WITH OSTOMY BAG CHANGE. PT MEDICATED PER EMAR WITH PRN VISTARIL FOR MASS SCORE OF 3. PT COMPLIANT WITH MEDICATIONS AND WAS PRESENT FOR BREAKFAST. Q 15 MIN CHECKS FOR SAFETY PER UNIT PROTOCOL.
--- NOTE | 2025-02-24 12:32 | NUR ---
OSTOMY CARE: PT CHANGED HER OSTOMY APPLIANCE AND BAG. THIS RN WAS PRESENT TO ASSIST WITH SUPPLIES. ALL SUPPLIES, WRAPPINGS AND WASTE ITEMS REMOVED FROM ROOM FOR SAFETY.
--- NOTE | 2025-02-24 17:55 | NUR ---
SHIFT SUMMARY: PT ALERT, ORIENTED AND COOPERATIVE WITH CARE. SHE DENIES SI, HI AND AVH. NO ACUTE CHANGES FROM SHIFT ASSESSMENT NOTE. PT HAS BEEN PRESENT FOR MEALS AND ATTENDED AM GROUP. SHE SPENT TIME RESTING IN HER ROOM ON HER BED. MONITORED WITH Q 15 MIN CHECKS FOR SAFETY PER UNIT PROTOCOL.
[2025-02-24 19:42] VITALS: BP 95/64
--- NOTE | 2025-02-24 21:24 | NUR ---
SHIFT SUMMARY Pt is A&O, calm, cooperative, polite, appropriately dressed and groomed, eye contact is appropriate. Pt stated that his mood is "allright," presents as depressed, affect is constricted. Pt denies SI, HI, and hallucinations. Pt denies current pain. Pt spent most of the evening in her room, resting quietly on her bed, but did get up for snack. PRN trazodone requested for sleep. Home med lurasidone was not given as it is not available; pt refused HS banana flakes. Staff continues to monitor q15m for safety and wellness.
--- NOTE | 2025-02-25 03:45 | NUR ---
TRANSFER OF CARE NO ACUTE EVENTS SINCE ASSUMING CARE FROM KARL BREAUX.
--- NOTE | 2025-02-25 04:45 | NUR ---
ASSUMED CARE OF PATIENT AT 4AM. PATIENT CURRENTLY SLEEPING. NO NOTED ISSUES OR BAHAVIORS. I WILL CONTINUE TO MONITOR EVERY 15 MINUTES FOR SAFETY AND COMFORT.
--- NOTE | 2025-02-25 09:39 | NUR ---
SHIFT ASSESSMENT: PT IS ALERT, ORIENTED AND COOPERATIVE WITH CARE. SHE IS FAILY WELL GROOMED AND HAS APPROPRIATE EYE CONTACT. SHE DENIES SI AND HI BUT REPORTS 9/10 ANXIETY. SHE STATES THAT SHE IS HEARING A VOICE THAT IS "TELLING ME TO KILL MYSELF". PT APPEARS ANXIOUS, SPEAKING FAST THAN NORMAL AND HAS INCREASED RATE OF BREATHING. PT SAT IN THE CHAIR BY THE NURSES STATION, ENCOURAGED HER TO USE RELAXATION BREATHING AND SHE WAS ABLE TO CALM SLIGHTLY. PT WAS MEDICATED WITH PRN ZYPREXA PER EMAR FOR MASS SCORE OF 7. SHE ATTENDED BREAKFAST BUT PER RITO A PATIENT DID NOT EAT THIS MORNING. PT RETURNED TO HER ROOM AND IS RESTING IN BED AT THIS TIME. Q 15 MIN CHECKS FOR SAFETY PER UNIT PROTOCOL.
--- NOTE | 2025-02-25 13:13 | NUR ---
MEDICATION NOTE: PT TO NURSES STATION REQUESTING SOMETHING TO HELP WITH ANXIETY. STATES THAT SHE IF FEELING ANXIOUS ALL OVER, RATES ANXIETY AT 9/10. PT MEDICATED WITH PRN VISTARIL PER EMAR FOR MASS SCORE OF 1. PT REPORTS THAT THE VOICES ARE "LESS" AFTER HER EARLIER DOSE OF ZYPREXA.
--- NOTE | 2025-02-25 17:10 | NUR ---
SHIFT SUMMARY: PT ALERT, ORIENTED AND COOPERATIVE WITH CARE. SHE SPENT MUCH OF THE DAY RESTING IN HER ROOM ON HER BED. SHE WAS MEDICATED WITH PRN PREVIOUSLY NOTED. NO ACUTE CHANGES NOTED FROM SHIFT ASSESSMENT. MONITORED WITH Q 15 MIN SAFETY CHECKS PER UNIT PROTOCOL.
[2025-02-25 20:45] VITALS: BP 90/65
--- NOTE | 2025-02-26 04:14 | NUR ---
SHIFT SUMMARY PT LAYING IN BED AWAKE AT START OF SHIFT. SHE REPORTS HER MOOD "OK, BUT i'M REALLY DEPRESSED". SHE DENIES ANY SI, HI, THOUGHTS OF SELF HARM OR AVTH. SHE DENIES ANY CURRENT ANXIETY. SHE STAYED IN HER ROOM, DECLINED TO HAVE EVENING SNACK. SHE WAS PLEASANT AND COOPERATIVE, COMPLIANT WITH MEDICATIONS. SHE REQUESTED AND RECEIVED PRN TRAZODONE TO ASSIST WITH SLEEPING. SHE HAS REMAINED IN BED THROUGHOUT THE NIGHT. Q15 MINUTE CHECKS TO CONTINUE PER PT SAFETY AND WELLNESS.
[2025-02-26 08:55] VITALS: BP 109/72
--- NOTE | 2025-02-26 09:58 | NUR ---
SHIFT ASSESSMENT: PT ALERT, ORIENTED AND COOPERATIVE WITH CARE. SHE DENIES SI, HI AND AVH TODAY. SHE HAS SHOWERED AND WAS ASSISTED WITH BRUSHING THE TANGLES OUT OF HER HAIR. PT STATES THAT SHE IS FEELING BETTER TODAY. SHE IS SMILING AND ENGAGED WITH STAFF. SHE HAS BEEN COMPLIANT WITH MEDICATIONS AND STATES THAT SHE SLEPT OK. PT ATTENDED BREAKFAST AND PER MHA RITO SHE ATE 70%. SHE IS CURRENTLY PLAYING MARIO ALBERTO IN THE DAY ROOM WITH PEERS.
--- NOTE | 2025-02-26 17:41 | NUR ---
SHIFT SUMMARY: PT WAS ALERT, ORIENTED AND COOPERATIVE WITH CARE THROUGHOUT SHIFT. SHE DENIES SI, HI AND AVH. SHE WAS PRESENT ON THE UNIT, ATTENDED MEALS AND AM MOVEMENT GROUP. SHE WAS ACTIVE IN THE [place], SPENT TIME IN THE DAY ROOM PLAYING CARDS, WATCHING TV AND VISITING WITH PEERS. NO ACUTE CHANGES SINCE SHIFT ASSESSMENT. MONITORED WITH Q 15 MIN SAFETY CHECKS PER UNIT PROTOCOL.
[2025-02-26 19:51] VITALS: BP 94/67
--- NOTE | 2025-02-27 04:16 | NUR ---
SHIFT SUMMARY PT LAYING IN BED AWAKE AT START OF SHIFT. SHE REPORTS HER MOOD "I'M DOING MUCH BETTER." PT DENIES ANY SI, HI, THOUGHTS OF SELF HARM OR AVTH. SHE IS SMILING AND APPEARS HAPPIER. PT WAS COMPLIANT WITH EVENING MEDS. SHE HAD HER BANATROL IN APPLESAUCE BUT DID NOT HAVE AN EVENING SNACK. SHE REPORTS HER BM'S HAVE BEEN INCREASING AND ARE PRODUCING MORE LIQUID. SHE REQUESTED AND RECEIVED A PRN TRAZODONE. SHE REMAINED IN BED THROUGHOUT THE NIGHT. Q15 MINUTE CHECKS TO CONTINUE PER PT SAFETY AND WELLNESS.
[2025-02-27 08:10] LABS: Alanine Aminotransfer (ALT/SGP 27.0 U/L (12-78); Albumin, Blood 3.5 g/dL (3.4-5.0); Albumin/Globulin Ratio 1.0 (0.8-1.8); Anion Gap 9.0 mmol/L (3-11); Aspartate Aminotrans (AST/SGOT 12.0 U/L (12-37); Bilirubin, Total 0.2 mg/dL (0.1-1.0); Blood Urea Nitrogen 23.0 mg/dL (8-24); CO2, Blood 23.0 mmol/L (21-32); Calcium, Blood 9.4 mg/dL (8.5-10.1); Chloride, Blood 109.0 mmol/L (98-108); Creatinine, Blood 0.91 mg/dL (0.40-1.00); Globulin, Blood 3.4 g/dL (2.2-4.0); Glucose, Blood 94.0 mg/dL (70-99); Potassium, Blood 4.0 mmol/L (3.5-5.5); Sodium, Blood 137.0 mmol/L (136-145); Total Protein, Blood 6.9 g/dL (6.4-8.2)
[2025-02-27 08:17] LABS: BASOPHILS ABSOLUTE AUTO 0.02 K/mm3 (0.00-0.23); BASOPHILS PERCENT AUTO 0 % (0-2); EOSINOPHILS ABSOLUTE AUTO 0.17 K/mm3 (0.00-0.68); EOSINOPHILS PERCENT AUTO 3 % (0-6); Hematocrit 33.4 % (33.0-51.0); Hemoglobin 10.7 g/dL (11.5-16.0); IMMATURE GRAN ABSOLUTE AUTO 0.01 K/mm3 (0.00-0.10); IMMATURE GRAN PERCENT AUTO 0 % (0-1); LYMPHOCYTES ABSOLUTE AUTO 1.55 K/mm3 (0.84-5.20); LYMPHOCYTES PERCENT AUTO 30 % (21-46); MONOCYTES ABSOLUTE AUTO 0.33 K/mm3 (0.16-1.47); MONOCYTES PERCENT AUTO 6 % (4-13); Mean Corpuscular HGB Conc 32.0 g/dL (31.5-36.5); Mean Corpuscular Volume 89 fL (80-100); NEUTROPHILS ABSOLUTE AUTO 3.12 K/mm3 (1.96-9.15); NEUTROPHILS PERCENT AUTO 60 % (41-73); NRBC ABSOLUTE 0.00 K/mm3 (0.00-0.02); NRBC Auto 0.0 /100 WBC (0.0-0.2); Platelet Count 232 K/mm3 (150-400); RDW Coefficient Variation 15.3 % (11.7-14.2); RDW Standard Deviation 49.3 fL (35.1-46.3)
[2025-02-27 08:54] VITALS: BP 94/66
--- NOTE | 2025-02-27 17:54 | NUR ---
SHIFT SUMMARY PT IS ALERT AND ORIENTED, GOOD EYE CONTACT, CLEAR REGULAR SPEECH, MED COMPLIANT, DENIES SI/HI/AVH WITH DECENT HYGIENE. SHE CHOOSE NOT TO CHANGE HER ILLEOSTOMY BAG TODAY, IT APPEARS TO BE ATTACHED/SEALED GOOD. SHE IS AFRAID SHE WILL RUN OUT OF HER OWN SUPPLIES. VERY COOPERATIVE AND POLITE. HAS BEEN IN HER ROOM ALL SHIFT OTHER THAN FOR MEALS/SNACKS AND THE ONE GROUP WE HAD TODAY. SHE HAS RECEIVED Q15 MIN VISUAL SAFETY CHECKS THROUGHOUT THE SHIFT
[2025-02-27 20:06] VITALS: BP 96/63
--- NOTE | 2025-02-28 04:27 | NUR ---
SHIFT SUMMARY PT LAYING IN BED AWAKE AT START OF SHIFT. SHE DENIES ANY SI, HI, THOUGHTS OF SELF HARM OR AVTH. SHE REPORTS HER MOOD DEPRESSED DUE TO HAVING TO EMPTY HER ILEOSTOMY FREQUENTLY. SHE DENIES ANY CURRENT ANXIETY. SHE WAS COMPLIANT WITH EVENING MEDS. SHE DECLINED EVENING SNACK, BUT HAD APPLESAUCE WITH MEDS. SHE REQUESTED AND RECEIVED PRN TRAZODONE TO ASSIST WITH SLEEPING AND HAS REMAINED IN BED THROUGHOUT THE NIGHT. Q15 MINUTE CHECKS TO CONTINUE PER PT SAFETY AND WELLNESS.
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
[2025-02-28 08:53] VITALS: BP 104/78
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
--- NOTE | 2025-02-28 17:19 | NUR ---
PATIENT HAS BEEN ALERT AND ORIENTATED. SHE IS HAVING FLEETING THOUGHTS OF SUICIDE. SHE HAS NO PLAN OR INTENT. SHE IS NOT HAVING ANY HALLUCINATION. SPEECH IS CLEAR AND THOUGHT PROCESS LOGICAL, BASED IN REALITY. PATIENT WILL START PRAZOSIN TONIGHT TO DECREASE THE NIGHTMARES THAT INCREASE HER SI. SHE STATES SHE HAS TALKEN THIS MEDICATION IN THE PAST BUT DOES NOT REMEMBER WHY IT STOPPED. TARAN JUARES WHO WORKS THROUGH [employer] WITH [facility], CALLED TODAY AND STATES THAT PETRA KANG IS THE [facility] WORKING WITH THIS PATIENT AND THAT SHE WILL HELP WITH DISCHARGE PLANNING. HER NUMBER IS [phone]. THE PATIENT IS CURRENTLY RESTING IN HER BED. SHE PLANS TO SHOWER TOMORROW AND DO HER OSTOMY CARE.
[2025-02-28 20:17] VITALS: BP 104/73
--- NOTE | 2025-03-01 04:13 | NUR ---
SHIFT SUMMARY 30 YEAR-OLD MALE PRESENTS WELL GROOMED. HE SPEAKS IN A CLEAR VOICE AND AN IN AN APPROPRIATE VOLUME. HE MAKES AND KEEPS EYE CONTACT DURING CONVERSATIONS. HE INTERACTS WELL WITH STAFF AND PEERS. HE DENIED SI, HI, AND AVTH AT THE TIME OF ASSESSMENT. HE DESCRIBED HIS MOOD FRUSTRATED DUE TO HIS COMMITMENT. HE ATTENDED ALL GROUPS AND MEALS. HE WAS COMPLIANT WITH TREATMENT AND MEDICATIONS. RECEIVED THE FOLLOWING PRNS: MELATONIN AND TRAZADONE FOR SLEEP & IBUPROFEN FOR RESTLESS LEGS. STATED THAT HE WOULD LIKE POTASSIUM PRESCRIBED FOR RESTLESS LEGS. CONTINUES TO BE MONITORED Q15 MINUTES FOR CARE AND SAFETY.
--- NOTE | 2025-03-01 04:35 | NUR ---
SHIFT SUMMARY 64 YEAR-OLS FEMALE PRESENTS MODERATELY GROOMED. SHE SPEAKS IN A CLEAR VOICE AND AT A SOFT VOLUME. SHE IS ABLE TO MAKE AND KEEP EYE CONTACT DURING CONVERSATIONS. AT THE TIME OF ASSESSMENT, SHE DENIED SI, HI, AND AVTH. SHE DESCRIBED HER MOOD "GOOD". SHE AWOKE AT APPROXIMATELY 2315 COMPLAINING OF HAVING A NIGHTMARE AND REPORTED HI. SHE FURTHER STATED THAT THE HI WAS NOT TO ANY STAFF OR PERR ON THE UNIT AND THAT SHE DID NOT HAVE ANY PLANS ON FOLLOWING THROUGH ON THE THOUGHTS. EDUCATIONS WAS PROVIDED ON PTSD AND AND AN OVERVIEW OF VARIOUS TREATMENT OPTIONS. SHE REQUESTED AND RECEIVED TRAZADONE FOR SLEEP. SHE ATTENDED DINNER, BUT REFUSED TO ATTEND ALL OTHER ACTIVITIES. SHE WAS MEDICATIONS COMPLIANT AND STARTED PRAZOSIN 1MG AT BEDTIME TONIGHT. SHE CONTINUES TO BE MONITORED Q15 MINUTES AND Q4 SI SAFETY & MITIGATIONS FOR CARE AND SAFETY.
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
[2025-03-01 08:47] VITALS: BP 121/108
--- NOTE | 2025-03-01 11:49 | NUR ---
PATIENT REPORTS THAT HER HANDS ARE STARTING TO CRAMP UP. SHE STATES AT HOME SHE TAKES POTASSIUM. HER MOST RECENT POTASSIUM LEVEL WAS NORMAL. SHE ALSO IS PRESCRIBED BANANA FLAKES THREE TIMES PER DAY. WILL REQUEST A MAG LEVEL FROM PROVIDER.
--- NOTE | 2025-03-01 13:37 | NUR ---
PATIENTS WORKERS COMPENSATION ADJUSTER(PETRA) CALLED AND REPORTED THAT THIS PATIENT IS WELL ESTABLISHED WITH [employer] TO INCLUDE A THERAPIST, MEDICATION, AND CASE MANAGEMENT. CM WOULD LIKE TO DISCUSS THE PATIENT MOVING INTO ASSISTED LIVING IN THE [facility]. BEFORE DISCHARGE, WE CAN CALL PETRA TO FIND OUT DATES FOR UPCOMING APPTS. PHONE [phone]
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
--- NOTE | 2025-03-01 17:48 | NUR ---
OSTOMY CARE COMPLETED. NEW BAG AND WAFER PLACED THIS SHIFT, END OF SHIFT.
[2025-03-01 19:33] VITALS: BP 102/69
--- NOTE | 2025-03-02 04:44 | NUR ---
SHIFT SUMMARY 64 YEAR-OLD FEMALE PRESENTS MODERATELY GROOMED. SHE SPEAKS IN A CLEAR, BUT QUIET VOICE. SHE IS ABLE TO MAKE AND KEEP EYE CONTACT DURING CONVERSATIONS. AT THE TIME OF ASSESSMENT, SHE STATED THAT SHE KATE, "OKAY". SHE ALSO DENIED SI, HI, AND AVTH AT THAT TIME. SHE ATTENDED DINNER, BUT DECLINED TO ATTEND SNACK OR DAY ROOM. SHE INSTEAD OPTED TO LIE ON HER BED. SHE WAS COMPLIANT WITH MEDICATIONS ADMINISTRATION. SHE RECEIVED PRN TRAZADONE FOR SLEEP AND VISTARIL FOR ANXIETY. SHE CONTINUES TO BE MONITORED Q15 MINUTES FOR CARE AND SAFETY, ALONG WITH Q4 HOUR SI SAFETY & MITIGATION CHECKS.
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
[2025-03-02 07:58] VITALS: BP 207/180
[2025-03-02 08:03] LABS: Alanine Aminotransfer (ALT/SGP 32.0 U/L (12-78); Albumin, Blood 3.8 g/dL (3.4-5.0); Albumin/Globulin Ratio 1.1 (0.8-1.8); Anion Gap 6.0 mmol/L (3-11); Aspartate Aminotrans (AST/SGOT 17.0 U/L (12-37); Bilirubin, Total 0.4 mg/dL (0.1-1.0); Blood Urea Nitrogen 22.0 mg/dL (8-24); CO2, Blood 24.0 mmol/L (21-32); Calcium, Blood 9.5 mg/dL (8.5-10.1); Chloride, Blood 111.0 mmol/L (98-108); Creatinine, Blood 1.03 mg/dL (0.40-1.00); Globulin, Blood 3.4 g/dL (2.2-4.0); Glucose, Blood 91.0 mg/dL (70-99); Magnesium, Blood 2.3 mg/dL (1.6-2.4); Potassium, Blood 4.2 mmol/L (3.5-5.5); Sodium, Blood 137.0 mmol/L (136-145); Total Protein, Blood 7.2 g/dL (6.4-8.2)
--- NOTE | 2025-03-02 15:24 | NUR ---
Upon receiving a referral for spiritual care, I visited the patient. The patient immediately tells me about the spiritual attack she feels she is under and that has been upon her from the day that she was born. I explore her spiritual beliefs about God, the devil and their place on humans. We talk about ways to feels more vicorious and spiritually free and to findand remain in a path of romeo. We also explore sources of meaning, value and love. The patient responded well and showed signs of catharsis and an elevated mood.
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
[2025-03-02 19:20] VITALS: BP 101/77
--- NOTE | 2025-03-03 05:08 | NUR ---
SHIFT SUMMARY Pt is A&O, calm, cooperative, polite, appropriately dressed and groomed, eye contact is appropriate. Pt describes her mood as "unhappy, sad," affect is depressed and sad. Pt denies SI, HI, and hallucinations. Pt denied current pain. Pt expressed frustration about being told on prior shift that she could not take a phone call while seated near the [facility] and complained that there is no place to have a private phone conversation if the sensory room is in use. Pt spent most of the evening resting in her room, but came out for snack and meds. PRN trazodone requested for sleep. At about 0110, pt awoke and reported pain in her abdomen rated 7/10w. Pt also vomited. Pt was given PRN APAP for the pain and PRN ondasetron for N/V. Pt was re-evaluated at 0215 and she was still reporting pain 7. PRN ibuprofen was given. Pain was 5 at re-evaluation, pt is in sensory room, pleasantly interacting with a staff member. At approximately 0345, pt requested something for anxiety and received PRN hydroxyzine; MASS-2. Pt requested PRN loperimide, which she received at 0503, along with her scheduled 0600 meds. Staff continues to monitor q15m for safety and wellness.
[2025-03-03 07:41] VITALS: BP 104/78
[2025-03-03 12:13] LABS: BASOPHILS ABSOLUTE AUTO 0.02 K/mm3 (0.00-0.23); BASOPHILS PERCENT AUTO 0 % (0-2); EOSINOPHILS ABSOLUTE AUTO 0.18 K/mm3 (0.00-0.68); EOSINOPHILS PERCENT AUTO 3 % (0-6); Hematocrit 34.7 % (33.0-51.0); Hemoglobin 11.1 g/dL (11.5-16.0); IMMATURE GRAN ABSOLUTE AUTO 0.02 K/mm3 (0.00-0.10); IMMATURE GRAN PERCENT AUTO 0 % (0-1); LYMPHOCYTES ABSOLUTE AUTO 1.64 K/mm3 (0.84-5.20); LYMPHOCYTES PERCENT AUTO 25 % (21-46); MONOCYTES ABSOLUTE AUTO 0.47 K/mm3 (0.16-1.47); MONOCYTES PERCENT AUTO 7 % (4-13); Mean Corpuscular HGB Conc 32.0 g/dL (31.5-36.5); Mean Corpuscular Volume 88 fL (80-100); NEUTROPHILS ABSOLUTE AUTO 4.26 K/mm3 (1.96-9.15); NEUTROPHILS PERCENT AUTO 65 % (41-73); NRBC ABSOLUTE 0.00 K/mm3 (0.00-0.02); NRBC Auto 0.0 /100 WBC (0.0-0.2); RDW Coefficient Variation 15.2 % (11.7-14.2); RDW Standard Deviation 49.1 fL (35.1-46.3)
[2025-03-03 12:23] LABS: Alanine Aminotransfer (ALT/SGP 36.0 U/L (12-78); Albumin, Blood 4.0 g/dL (3.4-5.0); Albumin/Globulin Ratio 1.1 (0.8-1.8); Anion Gap 9.0 mmol/L (3-11); Aspartate Aminotrans (AST/SGOT 20.0 U/L (12-37); Bilirubin, Total 0.3 mg/dL (0.1-1.0); Blood Urea Nitrogen 32.0 mg/dL (8-24); CO2, Blood 20.0 mmol/L (21-32); Calcium, Blood 9.4 mg/dL (8.5-10.1); Chloride, Blood 111.0 mmol/L (98-108); Creatinine, Blood 1.23 mg/dL (0.40-1.00); Globulin, Blood 3.6 g/dL (2.2-4.0); Glucose, Blood 70.0 mg/dL (70-99); Magnesium, Blood 2.3 mg/dL (1.6-2.4); Potassium, Blood 4.2 mmol/L (3.5-5.5); Sodium, Blood 136.0 mmol/L (136-145); Total Protein, Blood 7.6 g/dL (6.4-8.2)
[2025-03-03 12:25] VITALS: BP 86/70
[2025-03-03 12:26] VITALS: BP 86/70
[2025-03-03 12:37] VITALS: BP 99/67
--- NOTE | 2025-03-03 12:45 | NUR ---
SHIFT ASSESSMENT: PT ENDORSED SI WITHOUT A PLAN, SHE ENDORSED HI, "I HAVE A LIST. (NO ONE HERE) SHE ENDORSED AVH, "I'M SEEING THE SHADOW PEOPLE AGAIN, THEY WANT TO CAUSE ME TO CAUSE HARM ON THOSE ON MY LIST. THE VOICES ARE TELLING ME TO KILL THEM AND THEN KILL YOURSELF." HER MOOD IS, "SAD AND DEPRESSED." HER AFFECT IS CONGRUENT TO HER STATED MOOD. HER GOAL IS TO TRY TO RELAX AND CALM MYSELF AND PARTICIPATE IN GROUPS.
--- NOTE | 2025-03-03 15:08 | NUR ---
PT REPORTED 7/10w PAIN TO HER RIGHT HIP, "FIBROMYALGIA PAIN AND 4/10w PAIN TO HER RIGHT LOWER QUADRANT, "WHERE MY ILEOSTOMY IS." SHE WAS GIVEN ADVIL 650MG AND IMMODIUM 2MG AT 9:33. BOTH WERE UNEFFECTIVE. AT 12:23 SHE COMPLAINED OF DIZZINESS, AT 12:26 HER B/P WAS 86/70, SHE DRANK WATER AND AT 12:37 IT WAS 99/67. HOSPITALIST CONSULT WAS PLACED AND HOSPITAIST WAS CONTACTED BY PHONE. PT WAS GIVEN 4MG OF IMMODIUM PER HIS ORDER AND CHARGE CALLED NURSE SUPERVISER FOR A ROOM ON PCU. PT TO TRANSFER TO PCU 8. PT HAS BEEN VERY PLEASANT AND COOPERATIVE WITH CARE. DISCHARGE NOTE: 13:51 PT WAS DISCHARGED/TRANSFERED TO PCU 8 WITH ALL OF HER BELONGINGS AND PRINTED INSTRUCTIONS.
[2025-03-04] MEDS ORDERED: MULVITA PO (09:58)
[2025-03-04] MEDS ORDERED: OMEP20ER PO (09:59)
[2025-03-04] MEDS ORDERED: PRAZ1 PO (10:00)
== END 2025-03-03 13:51 | disposition short-term general hospital (02) | DRG 885 ==
LOC: BHU 13:07
PROVIDERS: Psychiatry & Neurology Psychiatry; Student in an Organized Health Care Education/Training Program; ADMIT Psychiatry & Neurology Psychiatry
DX: F33.2 Major depressive disorder, recurrent severe without psychotic features (principal); R45.851 Suicidal ideations; F15.10 Other stimulant abuse, uncomplicated; F14.10 Cocaine abuse, uncomplicated; F12.10 Cannabis abuse, uncomplicated; F41.9 Anxiety disorder, unspecified; F43.25 Adjustment disorder with mixed disturbance of emotions and conduct; Z88.5 Allergy status to narcotic agent; Z98.890 Other specified postprocedural states; Z79.899 Other long term (current) drug therapy; Z79.1 Long term (current) use of non-steroidal anti-inflammatories (NSAID); Z79.890 Hormone replacement therapy; Z79.51 Long term (current) use of inhaled steroids; Z23 Encounter for immunization; Z91.51 Personal history of suicidal behavior
CPT/HCPCS: 36415; 80048; 80053; 83735; 85025; A9270

== ENCOUNTER 2025-03-03 13:28 | Inpatient (IN) | payer MEDICARE, OTHER ==
[~2025-03-03] VITALS: Ht 167.6 cm; Wt 61.5 kg
[2025-03-03] VITALS (8 sets, daily range): BP systolic 80–124; BP diastolic 58–102
[~2025-03-03 13:28] MED LIST changes: +ACYC400 PO; +BANATROL PLUS1 EAC1 PO; +Celexa20 MG; +SODBIC650 PO
[2025-03-03] MEDS ORDERED: Ondansetron HCl 2 MG / ML 2ML Vial IV PRN (15:05)
[2025-03-03] MEDS ORDERED: FLU VACC TS2025-26(6MOS UP)/PF 45 MCG/0.5 ML SYRINGE IM ONE (15:10)
[2025-03-03] MEDS ORDERED: Albuterol HFA200 ACT/6.7 GM INH INH PRN (15:25)
[2025-03-03] MEDS ORDERED: Formoterol/Mometasone MDI 5/200 mcg 13 GM INH SCH (15:25)
--- NOTE | 2025-03-03 17:53 | NUR ---
"Spiritual Care | Pt. request Pt. is awake in bed with a 1:1 sitter when she welcomes my visit. Pt. quickly verbalizes that she has SI. Facilitated a life review and consider matters of the Pts. cristel. Listen with empathy and pastoral care. Pt. displayed evidence of emotional stability. Considered the conflict she is experiencing between cristel and self-harm. Pt. acknowleged and displayed evidence of agreement. Pt. welcomed prayer and requested I communicate with Electrical Experimental Mechanic Tim that we had this visit. Prayed with Pt. Pt. verbalized gratitude for the spiritual care visit."
--- NOTE | 2025-03-03 19:12 | NUR ---
PT ARRIVED TO UNIT AT APPROXIMATLEY 1400. A/O X 4, PLEASANT AND COOPERATIVE WITH CARE. SATS MAINTAINED >95% ON ROOM AIR. SR 80-90s. SBP 80-90s WITH DIZZINESS AND LIGHT HEADEDNESS. ROOM MITIGATED AND SITTER PRESENT FOR SAFETY. NO REPORT OF CHEST PAIN, PRESSURE, OR SOB. PT EXPRESSES SOME ANXIETY. ILLEOSTOMY RLQ, DRESSING CLEAN AND FRESHLY CHANGED AT TIME OF ARRIVAL. MD REQUESTING PICS OF SITE AT NEXT BANDAGE CHANGE. PT REPORTS MILD-MOD ABDOMINAL PAIN, WELL CONTROLLED WITH MEDS PER EMAR. BLOOD PRESSSURES CONTINUE TO BE SOFT, FLUIDS RUNNING PER ORDER. BED IN LOWEST SETTING AND CALL LIGHT IN REACH.
--- NOTE | 2025-03-03 20:00 | NUR ---
ASSUMPTION OF CARE ASSUMED CARE OF PT AT APPROXIMATELY 1900. PT SITTING UP IN BED. SITTER PRESENT. SI PRECAUTIONS IN PLACE. SEE ASSESSMENTS. OSTOMY SAMPLE RESULTS STILL PENDING. ENTERIC PRECAUTIONS IN PLACE PENDING RESULTS. PT AOX4. ABLE TO MAKE ALL NEEDS KNOWN. PT COOPERATIVE WITH ALL ASSESSMENTS AND CARES. BP STILL LABILE. PT C/O DIZZINESS WITH AMBULATION/POSITION CHANGES. MED REC IN PROGRESS, PT STATES SHE DOES NOT KNOW ALL OF HER MEDICATIONS OFF THE TOP OF HER HEAD. MD BUTT NOTIFIED AND ORDERS PLACED. PT RESTING IN BED WATCHING TV AT THIS TIME.
[2025-03-03] MEDS ORDERED: Banana Flakes/Tos 1 EA Powder Pack PO SCH (21:00)
[2025-03-03] MEDS ORDERED: Miconazole Nitrate 2% 85 GM PWD TOP SCH (21:00)
[2025-03-03 22:31] LABS: Campylobacter Sp Not Detected (NOT DETECT); E. Coli O157 Not Detected (NOT DETECT); Enteroaggregative E. coli-EAEC Not Detected (NOT DETECT); Enteropathogenic E. coli-EPEC Not Detected (NOT DETECT); Enterotoxigenic E. coli-ETEC Not Detected (NOT DETECT); Salmonella Sp Not Detected (NOT DETECT); Shiga Toxin-prod E. coli-STEC Not Detected (NOT DETECT); Shigella/Enteroin E. coli-EIEC Not Detected (NOT DETECT); Vibrio Sp Not Detected (NOT DETECT)
[2025-03-04 03:30] VITALS: BP 123/79
[2025-03-04 04:11] LABS: BASOPHILS ABSOLUTE AUTO 0.03 K/mm3 (0.00-0.23); BASOPHILS PERCENT AUTO 1 % (0-2); EOSINOPHILS ABSOLUTE AUTO 0.21 K/mm3 (0.00-0.68); EOSINOPHILS PERCENT AUTO 4 % (0-6); Hematocrit 28.5 % (33.0-51.0); Hemoglobin 8.9 g/dL (11.5-16.0); IMMATURE GRAN ABSOLUTE AUTO 0.01 K/mm3 (0.00-0.10); IMMATURE GRAN PERCENT AUTO 0 % (0-1); LYMPHOCYTES ABSOLUTE AUTO 1.49 K/mm3 (0.84-5.20); LYMPHOCYTES PERCENT AUTO 31 % (21-46); MONOCYTES ABSOLUTE AUTO 0.47 K/mm3 (0.16-1.47); MONOCYTES PERCENT AUTO 10 % (4-13); Mean Corpuscular HGB Conc 31.2 g/dL (31.5-36.5); Mean Corpuscular Volume 91 fL (80-100); NEUTROPHILS ABSOLUTE AUTO 2.59 K/mm3 (1.96-9.15); NEUTROPHILS PERCENT AUTO 54 % (41-73); NRBC ABSOLUTE 0.00 K/mm3 (0.00-0.02); NRBC Auto 0.0 /100 WBC (0.0-0.2); Platelet Count 230 K/mm3 (150-400); RDW Coefficient Variation 15.5 % (11.7-14.2); RDW Standard Deviation 51.6 fL (35.1-46.3)
[2025-03-04 04:31] LABS: Anion Gap 7.0 mmol/L (3-11); Blood Urea Nitrogen 22.0 mg/dL (8-24); CO2, Blood 24.0 mmol/L (21-32); Calcium, Blood 8.8 mg/dL (8.5-10.1); Chloride, Blood 112.0 mmol/L (98-108); Creatinine, Blood 1.09 mg/dL (0.40-1.00); Glucose, Blood 93.0 mg/dL (70-99); Potassium, Blood 4.0 mmol/L (3.5-5.5); Sodium, Blood 139.0 mmol/L (136-145)
--- NOTE | 2025-03-04 06:04 | NUR ---
SHIFT SUMMARY SITTER AT BEDSIDE. SI PRECAUTIONS IN PLACE. OSTOMY SAMPLE NEGATIVE FOR C-DIFF, POSITIVE FOR NOROVIRUS. PT ANXIETY MANAGED WITH MEDICATION PER EMAR. OSTOMY APPLIANCE CHANGED THIS SHIFT. PICTURES OF OSTOMY TAKEN AND PLACED IN CHART. PT AOX4. SOFT BPS IMPROVED TOWARD END OF SHIFT, LAST . PT PLEASANT AND COOPERATIVE WITH CARES. PT ABLE TO MAKE ALL NEEDS KNOWN AND CALLS APPROPRIATELY FOR ASSISTANCE WHEN NEEDED. NO C/O CHEST PAIN/PRESSURE. NO C/O SOB.
[2025-03-04 08:04] VITALS: BP 123/87
[2025-03-04 08:36] LABS: Ferritin, Serum 8.0 ng/mL (8-252); Total Iron Binding Capacity 353.0 ug/dL (250-450)
[2025-03-04] MEDS ORDERED: Multivitamins 1 Tab PO SCH (09:00)
[2025-03-04] MEDS ORDERED: Enoxaparin 40 MG/0.4 ML SYR SC SCH (09:00)
[2025-03-04] MEDS ORDERED: MULVITA PO (09:58)
[2025-03-04] MEDS ORDERED: OMEP20ER PO (09:59)
[2025-03-04] MEDS ORDERED: PRAZ1 PO (10:00)
[2025-03-04] MEDS ORDERED: Sod Ferric Gluc Complx/Sucrose 125 MG in NS 100 ML IV SCH (11:00)
[2025-03-04 13:59] VITALS: BP 101/72
--- NOTE | 2025-03-04 14:20 | NUR ---
PCU 11 TO 228 PT TRANSFERREDFROM PCU TO SURGICAL FLOOR AFTER BEING MADE MEDICAL STATUS, BROUGHT OVER BY WHEELCHAIR. ROOM WAS MITIGATED PRIOR TO HER ARRIVAL. SHE WAS OREIENTED TO HER NEW ROOM, DISCUSSED PLAN OF CARE WITH HER. ILEOSTOMY IN PLACE WITH NO SIGNS OF DRAINAGE OR LEAKAGE AROUND THE DRESSING, SMALL AMT OF OUTPUT IN HER BAG. TELEMETRY REMOVED, NO ACUTE NEEDS AT THIS TIME, SHE IS PLEASANT AND COOPERATIVE WITH STAFF AND HER CARE. SITTER IN PLACE JUST OUTSIDE THE DOOR FOR PATIENT SAFETY.
[2025-03-04 19:56] VITALS: BP 108/74
--- NOTE | 2025-03-04 20:20 | NUR ---
SHIFT SUMMARY PT HAD UNEVENTFUL DAY SINCE ARRIVING ON SURGICAL FLOOR, 1:[address] T/O THE SHIFT, SHE HAS BEEN PLEASANT AND CHEERFUL WHEN INTERACTING WITH STAFF. NO ACUTE CONCERNS, CALL LIGHT IN REACH AND SITTER IN VIEW.
[2025-03-05 02:36] VITALS: BP 99/65
[2025-03-05 04:24] LABS: Hematocrit 26.7 % (33.0-51.0); Hemoglobin 8.6 g/dL (11.5-16.0)
[2025-03-05 04:43] LABS: Anion Gap 9.0 mmol/L (3-11); Blood Urea Nitrogen 13.0 mg/dL (8-24); CO2, Blood 19.0 mmol/L (21-32); Calcium, Blood 8.6 mg/dL (8.5-10.1); Chloride, Blood 116.0 mmol/L (98-108); Creatinine, Blood 0.98 mg/dL (0.40-1.00); Glucose, Blood 113.0 mg/dL (70-99); Potassium, Blood 3.4 mmol/L (3.5-5.5); Sodium, Blood 141.0 mmol/L (136-145)
--- NOTE | 2025-03-05 08:26 | NUR ---
SHIFT SUMMARY NOC. PT ADMIT FOR HYPOTENSION AND SI. PT REPORTS ACTIVE SI BUT DENIES PLAN. BP STABLE. PT'S ILEOSTOMY IS PATENT AND PRODUCING SOFT OUPUT. OSTOMY APPLIANCE NEEDED REPLACEMENT THIS SHIFT. PT VOIDING URINE. 1:1 SITTER T/O SHIFT. PT MAKES NEEDS KNOWN, CALL LIGHT IN REACH.
[2025-03-05 08:40] VITALS: BP 104/73
--- NOTE | 2025-03-05 09:00 | NUR ---
patient is awake, eating breakfast now. reportS SI and plan to RN. pleasant, talking to staff. 1:1 sitter at the bedside.
[2025-03-05] MEDS ORDERED: Ondansetron 4 MG SoluTab SL ONE (10:50)
[2025-03-05 15:06] VITALS: BP 97/61
[2025-03-05] MEDS ORDERED: Diphenoxylat/Atrop 2.5 / 0.025MG 1 Tab PO PRN (15:40)
[2025-03-05] MEDS ORDERED: Ondansetron 4 MG SoluTab MM PRN (15:40)
[2025-03-05 19:19] VITALS: BP 108/72
[2025-03-05 19:26] VITALS: BP 108/72
[2025-03-06 05:19] VITALS: BP 107/74
[2025-03-06 06:36] LABS: Hematocrit 29.7 % (33.0-51.0); Hemoglobin 9.4 g/dL (11.5-16.0)
--- NOTE | 2025-03-06 06:46 | NUR ---
SHIFT SUMMARY PT ADMITTED FOR HYPOTENSION AND SI. PT REPORTS SI BUT DENIES PLAN. PT ILEOSTOMY PATENT AND PRODUCING BROWN LIQUID STOOL. VSS. 1:1 SITTER THROUGHOUT SHIFT. PT C/O NAUSEA THROUGHOUT SHIFT. MEDICATED PER EMAR WITH PT REPORTING RELIEF OF SYMPTOMS. PT MAKES NEEDS KNOWN. CALL LIGHT WITHIN REACH.
[2025-03-06 06:52] VITALS: BP 102/72
[2025-03-06 06:56] LABS: Anion Gap 10.0 mmol/L (3-11); Blood Urea Nitrogen 10.0 mg/dL (8-24); CO2, Blood 20.0 mmol/L (21-32); Calcium, Blood 8.8 mg/dL (8.5-10.1); Chloride, Blood 114.0 mmol/L (98-108); Creatinine, Blood 0.83 mg/dL (0.40-1.00); Glucose, Blood 92.0 mg/dL (70-99); Potassium, Blood 3.8 mmol/L (3.5-5.5); Sodium, Blood 140.0 mmol/L (136-145)
--- NOTE | 2025-03-06 08:13 | NUR ---
DR RYAN AND NURSING MICRO LAB ANALYST APPROVED PT TO HAVE VISITOR SPOKE TO [place]ITT[place], PT'S FRIEND, WHO WILL BE COMING TO VISIT FROM [place].
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
[2025-03-06 15:00] VITALS: BP 98/70
--- NOTE | 2025-03-06 15:24 | NUR ---
SHIFT SUMMARY PT IS A/OX4. HAS BEEN IN A PLEASENT MOOD T/O DAY. DENIES SUICIDAL IDEATIONS. TOLERATING PO INTAKE. DENIES N/V. VSS STABLE. IND IN ROOM. 1:1 SITTER, PT HAD A FRIEND VISIT FROM [place] APPROVED BY DR. LARA MOOD IMPROVED W/ VISIT.
--- NOTE | 2025-03-06 18:14 | NUR ---
NO ACUTE CHANGES WILL REPORT TO ONCJOSE RN
[2025-03-07 07:42] LABS: Hematocrit 29.5 % (33.0-51.0); Hemoglobin 9.4 g/dL (11.5-16.0)
[2025-03-07 07:50] VITALS: BP 113/83
[2025-03-07 08:04] LABS: Anion Gap 12.0 mmol/L (3-11); Blood Urea Nitrogen 9.0 mg/dL (8-24); CO2, Blood 20.0 mmol/L (21-32); Calcium, Blood 8.9 mg/dL (8.5-10.1); Chloride, Blood 114.0 mmol/L (98-108); Creatinine, Blood 0.88 mg/dL (0.40-1.00); Glucose, Blood 110.0 mg/dL (70-99); Potassium, Blood 3.8 mmol/L (3.5-5.5); Sodium, Blood 142.0 mmol/L (136-145)
--- NOTE | 2025-03-07 08:15 | NUR ---
PT EATING BREAKFAST. 1:1 SITTER IN ROOM.
--- NOTE | 2025-03-07 10:57 | NUR ---
DR FELICIANO IN TO SEE PT.
[2025-03-07 14:10] VITALS: BP 124/77
[2025-03-07] MEDS ORDERED: Formoterol/Mometasone MDI 5/200 mcg 13 GM INH SCH (14:25)
--- NOTE | 2025-03-07 16:58 | NUR ---
SUMMARY PT MEDICATED TWICE DURING SHIFT FOR ANXIETY. SHOWERED AND CHANGED OSTOMY APPLIANCE WITH RN ASSISTANCE. PT REQUESTED "PSYCH" MEDS, STATING "STARTING TO FEEL WEIRD IN MY HEAD". NOTIFIED DR FELICIANO. ORDERS OBTAINED FOR CELEXA, WHICH WAS GIVEN AND LATUDA, WHICH PT STATED DOES NOT HAVE. 1:1 SITTER PRESENT.
[2025-03-07 18:58] VITALS: BP 117/79
[2025-03-07] MEDS ORDERED: LURASIDONE 80 MG PO SCH (21:00)
--- NOTE | 2025-03-08 02:36 | NUR ---
PT REPORTED OSTOMY APPLIANCE LEAKING. ASSISTED WITH PT DRIVEN APPLIANCE CHANGE. 40 MINUTES PASTED AND PT REPORTED OSTOMY APPLIANCE LEAKING AGAIN. NURSE DRIVEN APPLIANCE CHANGE. EDUCATION PROVIDED REGARDING OSTOMY APPLIANCE APPLICATION AND SIGNS OF STOMAL ISHEMIA. PT VERBALLY DEMONSTRATED UNDERSTANDING OF EDUCATION.
[2025-03-08 03:48] VITALS: BP 118/86
--- NOTE | 2025-03-08 06:07 | NUR ---
SHIFT SUMMARY PT ADMITTED FOR HYPOTENSION AND SI. PT POSITIVE FOR NOROVIRUS, CONTACT PRECAUTIONS IN PLACE. PT REPORTS SI BUT DENIES PLAN. 1:1 SITTER THROUGHOUT SHIFT. ILEOSTOMY APPLIANCE CHANGED TWICE THIS SHIFT. SEE PREVIOUS RN NOTE. OSTOMY PRODUCING BROWN WATERY STOOL. PT C/O PAIN AND NAUSEA THIS SHIFT. PT MEDICATED PER EMAR WITH PT REPORTING RELIEF OF SYMPTOMS. CALL LIGHT WITHIN REACH.
[2025-03-08 07:53] VITALS: BP 97/64
[2025-03-08 11:48] LABS: Anion Gap 11.0 mmol/L (3-11); Blood Urea Nitrogen 12.0 mg/dL (8-24); CO2, Blood 18.0 mmol/L (21-32); Calcium, Blood 9.1 mg/dL (8.5-10.1); Chloride, Blood 111.0 mmol/L (98-108); Creatinine, Blood 0.96 mg/dL (0.40-1.00); Glucose, Blood 93.0 mg/dL (70-99); Potassium, Blood 3.9 mmol/L (3.5-5.5); Sodium, Blood 136.0 mmol/L (136-145)
--- NOTE | 2025-03-08 12:25 | NUR ---
CLEARED BY DR RYAN TO DC ONCE MEDICALLY STABLE PER HOSPITALIST. 1 TO 1 SITTER REMOVED, SHE WAS GIVEN ALL HER BELONGINGS BACK. PT APPEARS HAPPY TO GET THIS NEWS.
[2025-03-08 14:06] VITALS: BP 118/86
--- NOTE | 2025-03-08 19:40 | NUR ---
SHIFT SUMMARY PT WAS CLEARED TODAY BY PSYCH, CALL PLACED TO ATTENDING TO UPDATE ON THIS, KEEPING PATIENT TILL OUTPUT HAS REDUCED. DURING BEDSIDE SHIFT REPROT THIS EVENING PATIENT STATES SHE HAS ONLY HAD TO EMPTY HER BAG 7 TIMES TODAY WHIC IS ABOUT HALF OF WHAT SHE HAD TO DO YESTERDAY. OUTPUT DECREASING BUT UNMEASURED SHE ISTAKING CARE OF HER OWN OSTOMY. NO ACUTE EVETNS, CALL LIGHT IN REACH.
[2025-03-08 20:31] VITALS: BP 111/76
[2025-03-09 04:41] LABS: Anion Gap 8.0 mmol/L (3-11); Blood Urea Nitrogen 15.0 mg/dL (8-24); CO2, Blood 22.0 mmol/L (21-32); Calcium, Blood 8.8 mg/dL (8.5-10.1); Chloride, Blood 113.0 mmol/L (98-108); Creatinine, Blood 0.98 mg/dL (0.40-1.00); Glucose, Blood 96.0 mg/dL (70-99); Potassium, Blood 4.1 mmol/L (3.5-5.5); Sodium, Blood 139.0 mmol/L (136-145)
--- NOTE | 2025-03-09 05:07 | NUR ---
SHIFT SUMMARY NO ACUTE CHANGES THIS SHIFT. OSTOMY APPLIANCE CHANGED X 1 FOR LEAKING, PT ABLE AND WILLING TO ASSIT. SKIN AROUND STOMA CONTINUES TO APPEAR EXCORIATED AND RED. STOMA BEEFY RED IN COLOR. FREQUENT LIQUID STOOLS HAVE DECREASED COMPARED TO PREVIOUS NIGHT. PT REPORTS INCREASED DOSE OF IMODIUM TO BE BENEFICIAL. PT RONNA PO INTAKE, DENIES N/V. IS IND ROOM AND VOIDING. PAIN MANAGED PER EMAR. PT IS A/OX4 WITH VSS. IS PLEASANT AND COOPERATIVE WITH CARE. PT CURRENTLY RESTING IN BED WITH CALL LIGHT IN REACH, RESP EVEN AND CALL LIGHT IN REACH. WILL GIVE REPORT TO ONCOMING RN.
[2025-03-09 05:16] VITALS: BP 94/59
--- NOTE | 2025-03-09 07:19 | NUR ---
UPDATE PT WOKE AT 0620 TODAY WITH A LARGE OSTOMY LEAK. PT THEN SHOWERED PRN AND NEW OSTOMY APPLIANCE REAPPLIED BY RN. SKIN CONTINUES TO BE EXCORIATED, TENDER AND RED UNDER APPLIANCE. STOOL NOW MORE FORMED AND NOT LIQUID IN THICKNESS. PT NOW WATCHING TV IN BED, WATCHING TV WITH CALL LIGHT IN REACH. DENIES NEEDS. BED SIDE REPORT COMPLETE WITH DAY RN AND STUDENT.
[2025-03-09 08:01] VITALS: BP 105/79
[2025-03-09 15:18] VITALS: BP 114/79
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
--- NOTE | 2025-03-09 19:52 | NUR ---
SHIFT SUMMARY PT EMPTIED HER OSTOMY 3X TODAY, SOME N/V THIS AM BUT RESOLVED AROUND 1100 AND NO REPORTS OF NAUSEA FOR THE REST OF THE SHIFT, HAD 2 OSTOMY LEAKS TODAY, HAVING TROUBLE HOULDING A GOOD SEAL R/T EXCORIATION AROUND HER STOMA. DISCUSSED SITUATION WITH CRAYON PAINTER WHO PROVIDED TIPS FOR GOOD PLACEMENT AND CAME AND PLACED A NEW APPLIANCE WHEN IT LEAKED THE SECOND TIME. PLAN FOR DC TOMORROW AT ATTENDING MD DISCRETION. PT REQUESTING HH AND ASSISTANCE WITH HER RIDE BENEFIT.
[2025-03-09 21:15] VITALS: BP 114/71
[2025-03-10 02:33] VITALS: BP 103/63
--- NOTE | 2025-03-10 05:04 | NUR ---
SHIFT SUMMARY NO ACUTE CHANGES T/O SHIFT. OSTOMY CHANGED 2X R/T LEAKING. PT ABLE AND WILLING TO HELP. SKIN CONTINUES TO BE EXORIATED AROUND STOMA. STOMA BEEFY RED IN COLOR PRODUCING LIQUID/SOFT STOOL. PT RONNA PO, DENIES N/V. IS VOIDING. A/OX4 WITH VSS. PT AMB IN HALLWAY AND SHOWERED IND. IS CURRENTLY RESTING IN BED WITH EYES CLOSED AND RESP EVEN/UNLABORED. HAS CALL LIGHT IN REACH AND ABLE TO MAKE NEEDS KNOWN. WILL GIVE REPORT TO ONCOMING RN
--- NOTE | 2025-03-10 06:15 | NUR ---
UPDATE PT LISTENING TO LOUD MUSIC IN ROOM, DANCING AROUND. VERY CHEERFUL AND REPORTS SHE IS SO HAPPY TO BE GOING HOME. REPORTS HAVING ALL HER NEEDS MET ONCE SHE GETS THERE INCLUDING A THERAPIST. SHE IS EAGER TO SEE HER SERVICE DOG. PT STATES SHE FEELS SAFE AND COMFORTABLE DISCHARGING TODAY TO HER HOME IN [place]. MEDICATED AT THIS TIME PER EMAR. PT DENIES NEEDS.
[2025-03-10 07:08] VITALS: BP 105/72
[2025-03-10 15:19] VITALS: BP 116/68
--- NOTE | 2025-03-10 15:20 | NUR ---
"Spiritual Care Visit | Nurse request Pt. is awake in her room when she welcomes my visit. Pt. has been seen by this sleeve sewer during a previous visit. Pt. is pleasant and verbalizes an expectatoin of being discharged home on Thursday. Consider matters of cristel and ministries that can assist her in her recovery. Pt. displayed evidence of awareness and agreement. Prayed with the Pt. and focused on her journey and other family needs. Pt. verbalized gratitude for the spiritual care visit."
--- NOTE | 2025-03-10 17:27 | NUR ---
shift summary OSTOMY APPLIANCE CHANGED THIS MORNING. HAS HELD DURING DAY. USING A BELT FOR SUPPORT. CONTINUES TO HAVE SOFT STOOL IN BAG. PLAN IS FOR POSSIBLE DISCHARGE TOMORROW. PT REPORTS NAUSEA IMPROVED THIS AFTERNOON, TOLERATED DINNER WELL.
[2025-03-10 19:42] VITALS: BP 95/76
--- NOTE | 2025-03-11 01:23 | NUR ---
PT AMBULATING IN HALLS; REQUESTS BACK BAIL BONDING AGENT FROM PATIENT CART AND FOR PHONE TO BE CHARGED.
[2025-03-11 03:21] VITALS: BP 112/75
--- NOTE | 2025-03-11 04:26 | NUR ---
SHIFT SUMMARY NO ACUTE EVENTS OVERNIGHT. PT REPORTS HAVING SOME ANXIETY ABOUT SUPPLIES FOR OSTOMY AT DISCHARGE. PER REPORT, PT TO BE DISCHARGED BY 11AM TODAY WHEN HER RIDE ARRIVES AT THE [place] [facility]TR[facility]. PT TOLERATING PO INTAKE. PT MANAGING OSTOMY INDEPENDENTLY. PT APPLIANCE HAS BEEN INTACT DURING SHIFT.
[2025-03-11 04:29] LABS: Anion Gap 7.0 mmol/L (3-11); Blood Urea Nitrogen 17.0 mg/dL (8-24); CO2, Blood 23.0 mmol/L (21-32); Calcium, Blood 8.7 mg/dL (8.5-10.1); Chloride, Blood 112.0 mmol/L (98-108); Creatinine, Blood 0.93 mg/dL (0.40-1.00); Glucose, Blood 109.0 mg/dL (70-99); Magnesium, Blood 2.1 mg/dL (1.6-2.4); Phosphorus, Blood 3.7 mg/dL (2.5-4.9); Potassium, Blood 3.9 mmol/L (3.5-5.5); Sodium, Blood 138.0 mmol/L (136-145)
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
[2025-03-11 07:32] VITALS: BP 107/74
[2025-03-11] MEDS ORDERED: MICONAZOLE NIT130 GM TOP (08:58)
[2025-03-11] MEDS ORDERED: PROP10 PO (09:00)
[2025-03-11] MEDS ORDERED: B-1100 M1 PO (09:00)
[2025-03-11] MEDS ORDERED: TRAZ150T57 PO (09:01)
--- NOTE | 2025-03-11 10:44 | NUR ---
DC INSTRUCT REVIEWED. STATED UNDERSTANDING. DISCHARGED TO [facility] TO GET TO 11AM RIDE.
== END 2025-03-11 10:48 | disposition home health service (06) | DRG 315 ==
LOC: PCU 13:28 → SURS 03-04 13:48
PROVIDERS: Internal Medicine; ADMIT Student in an Organized Health Care Education/Training Program
DX: I95.9 Hypotension, unspecified (principal); A08.11 Acute gastroenteropathy due to Norwalk agent; N17.9 Acute kidney failure, unspecified; R45.851 Suicidal ideations; F33.2 Major depressive disorder, recurrent severe without psychotic features; J44.9 Chronic obstructive pulmonary disease, unspecified; K21.9 Gastro-esophageal reflux disease without esophagitis; A60.04 Herpesviral vulvovaginitis; G43.909 Migraine, unspecified, not intractable, without status migrainosus; I10 Essential (primary) hypertension; R73.9 Hyperglycemia, unspecified; E03.9 Hypothyroidism, unspecified; D50.9 Iron deficiency anemia, unspecified; F43.25 Adjustment disorder with mixed disturbance of emotions and conduct; F15.10 Other stimulant abuse, uncomplicated; F17.210 Nicotine dependence, cigarettes, uncomplicated; E87.6 Hypokalemia; Z93.3 Colostomy status; Z91.51 Personal history of suicidal behavior; Z88.5 Allergy status to narcotic agent; Z79.51 Long term (current) use of inhaled steroids; Z79.890 Hormone replacement therapy
CPT/HCPCS: 36415; 80048; 82607; 82728; 82746; 83540; 83550; 83735; 84100; 85014; 85018; 85025; 87507; 94640; 94664; 94760; 94762; 96361; 96365; 96366; 96372; 96375; 96376; A9270; G0378; J1650; J2405; J2916; J3030; J7120